=== PATIENT | female | born 1975 | race Caucasian/White ===

== ENCOUNTER 2017-04-04 19:02 | Inpatient (IN) | payer OTHER ==
--- NOTE | 2017-04-04 19:22 | PDOC ---
Rapid Medical Evaluation Time Seen by Provider: 04/04/17 19:17 Medical Evaluation: Allergies Allergy/AdvReac Type Severity Reaction Status Date / Time clarithromycin [From Biaxin] Allergy Verified 05/19/15 16:32 04/04/17 19:20 I have performed a brief in-person evaluation of this patient. The patient presents with a chief complaint of: inability to walk x "weeks". Patient requesting to be seen by specialist for her MS. Complaining of pain in both legs preventing her from walking. Pertinent physical exam findings: NAD, received in wheelchair lungs clear bilaterally heart s1s2 bipedal edema I have ordered the following: labs The patient will proceed to the ED for further evaluation.
[2017-04-04 19:24] VITALS: BMI 26.6
[2017-04-04 20:10] LABS: EOS % 2.3 % (0-4.5); MCH 31.1 pg (25.7-33.7); MCHC 33.4 g/dl (32.0-36.0); MEAN CELL VOLUME 93.1 fl (80-96); MEAN PLT VOLUME 7.5 fl (7.5-11.1); NEUT % 57.7 % (42.8-82.8); PLATELET COUNT 306 K/MM3 (134-434); RDW 13.2 % (11.6-15.6); WHITE BLOOD COUNT 10.9 K/mm3 (4.0-10.0)
[2017-04-04 20:19] LABS: INR 1.06 (0.82-1.09)
[2017-04-04 20:21] LABS: ACTIVATED PTT 36.3 SECONDS (26.9-34.4); ALBUMIN 3.5 g/dl (3.4-5.0); ANION GAP 5 (8-16); BILIRUBIN,TOTAL 0.3 mg/dL (0.2-1.0); CALCIUM 8.5 mg/dL (8.5-10.1); CO2 30 mmol/L (21-32); CREATININE 0.5 mg/dL (0.55-1.02); GLUCOSE,RANDOM 84 mg/dL (74-106); SGPT/ALT 12 U/L (12-78); TOT PROT 6.5 g/dl (6.4-8.2)
[2017-04-04 20:23] LABS: ALK PHOS 54 U/L (45-117)
--- NOTE | 2017-04-04 20:32 | PDOC ---
History of Present Illness - General Chief Complaint: Chronic pain Stated Complaint: EDEMA Time Seen by Provider: 04/04/17 19:17 - History of Present Illness Initial Comments: 04/04/17 20:31 CHIEF COMPLAINT: MS exacerbation HISTORY OF PRESENT ILLNESS: 41 year old female with PMH of MS, chronic back pain , bariatric surgery presents to ED with c/o of exacerbation of MS. Patient reports that her right leg has been increasingly weak for the last month and now "it just gives out" and she cannot walk. She states she has a walker "but it doesn't help if I can't even stand due to the weakness of my right leg." Patient states that she has had similar episodes and "always" requires IV steroids. Patient states she moved to [place] approximately 1-2 years ago and has not been receiving sufficient care at the hospital there; "they won't admit me and give me the steroids." Patient presently denies fever, chills, nausea, vomiting, diarrhea, abdominal pain, shortness of breath, chest pain, back pain, blurred vision, diplopia, dizziness, rash, fever or chills. No recent travel or sick contacts. PAST MEDICAL HISTORY: as per HPI FAMILY HISTORY: Denies SOCIAL HISTORY: Daily smoker. SURGICAL HISTORY: bariatric surgery ALLERGIES: clarithromycin REVIEW OF SYSTEMS General/Constitutional: Denies fever or chills. Denies weakness. HEENT: Denies change in vision. Denies ear pain or discharge. Denies sore throat. Cardiovascular: Denies chest pain or shortness of breath. Respiratory: Denies cough, wheezing, or hemoptysis. Gastrointestinal: Denies nausea, vomiting, diarrhea or constipation. Denies rectal bleeding. Genitourinary: Denies dysuria, frequency, or change in urination. Musculoskeletal: "My legs are always in pain, but my right leg has become really weak and I can't walk on it." Skin and breasts: Denies rash or easy bruising. Neurologic: Denies headache, vertigo, loss of consciousness, or loss of sensation. Psychiatric: Denies depression or anxiety. PHYSICAL EXAM General Appearance: Well-appearing, appropriately dressed. No apparent distress. HEENT: EOMI, PERRLA, normal ENT inspection, normal voice, TMs normal, pharynx normal. No conjunctival pallor. No photophobia, scleral icterus. Respiratory/Chest: Lungs CTAB. Cardiovascular: RRR. S1, S2. Vascular Pulses: Dorsalis-Pedis (R): 2+, Dorsalis-Pedis (L): 2+ Gastrointestinal/Abdominal: Normal bowel sounds. Abdomen soft, non-distended. No tenderness or rebound tenderness. No organomegaly, pulsatile mass, guarding , hernia, hepatomegaly, splenomegaly. Musculoskeletal/Extremities: Normal inspection. FROM of all extremities, normal capillary refill. Pelvis Stable. No CVA tenderness. No tenderness to extremities, pedal edema, swelling, erythema or deformity. Integumentary: Appropriate color, dry, warm. 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 Fully oriented, alert. Appropriate mood/affect. Motor strength 5/5. No appreciable EOM palsy, facial droop or sensory deficit. Past History - Past Medical History Allergies/Adverse Reactions: Allergies Allergy/AdvReac Type Severity Reaction Status Date / Time clarithromycin [From Biaxin] Allergy Verified 04/04/17 19:24 Home Medications: Ambulatory Orders Esomeprazole Mag Trihydrate [Nexium] 40 mg PO DAILY #0 capsule.ec 07/31/13 Levetiracetam [Keppra -] 750 mg PO BID #60 tablet 07/31/13 Oxycodone HCl/Acetaminophen [Percocet 5-325 mg Tablet] 1 - 2 tab PO Q6H PRN #30 tablet 04/15/15 Lorazepam [Ativan] 0.5 mg PO PRN PRN 04/21/15 Oxymorphone HCl [Opana ER] 40 mg PO DAILY 05/19/15 Amox-Tr/K Cl [Augmentin 875-125mg Tablet -] 1 tab PO BID@0800,1730 tablet 05/29 Docusate Sodium [Colace -] 100 mg PO BID PRN #0 capsule 05/29/15 Gabapentin [Neurontin -] 300 mg PO TID capsule 05/29/15 Polyethylene Glycol 3350 [Miralax 119 gm Btl -] 17 gm PO BID bottle 05/29/15 Anemia: No Asthma: No Cancer: No Cardiac Disorders: No CVA: No COPD: No CHF: No Dementia: No Diabetes: No GI Disorders: Yes (reflux) Disorders: Yes (incontinence) HTN: No Hypercholesterolemia: No Liver Disease: No Seizures: Yes (years ago) Thyroid Disease: No - Surgical History Abdominal Surgery: Yes (lap. band placed and removed) Appendectomy: No Cardiac Surgery: No Cholecystectomy: No Lung Surgery: No Neurologic Surgery: No - Immunization History Td Vaccination: Yes Immunization Up to Date: (UNKNOWN) - Suicide/Smoking/Psychosocial Hx Smoking Status: Yes Smoking History: Current every day smoker Have you smoked in the past 12 months: Yes Number of Cigarettes Smoked Daily: 3 Information on smoking cessation initiated: No 'Breaking Loose' booklet given: 05/20/15 Hx Alcohol Use: No Drug/Substance Use Hx: No Substance Use Type: None Hx Substance Use Treatment: No *Physical Exam - Vital Signs Last Vital Signs Temp Pulse Resp BP Pulse Ox 97.7 F 97 H 16 138/86 99 04/04/17 19:15 04/04/17 19:15 04/04/17 19:15 04/04/17 19:15 04/04/17 19:15 ED Treatment Course - LABORATORY CBC & Chemistry Diagram: 04/04/17 19:45 04/04/17 19:45 - ADDITIONAL ORDERS Additional order review: 04/04/17 19:45 RBC 4.05 MCV 93.1 MCHC 33.4 RDW 13.2 MPV 7.5 Neutrophils % 57.7 Lymphocytes % 31.7 Monocytes % 7.3 Eosinophils % 2.3 Basophils % 1.0 Medical Decision Making - Medical Decision Making 04/04/17 20:55 41 year old female with PMH of MS, chronic back pain, bariatric surgery presents to ED with c/o of exacerbation of MS. -labs Called patient's PCP Jose. 04/04/17 21:34 Discussed case with covering MD Fernandez. Will start patient on IV steroids with 125 mg solumedrol. Neuro consult in am. *DC/Admit/Observation/Transfer Diagnosis at time of Disposition: Multiple sclerosis exacerbation, Right leg weakness - Discharge Dispostion Admit: Yes - Referrals Referrals: Arabella Garcia MD [Primary Care Provider] - - Patient Instructions - Post Discharge Activity
[2017-04-04 20:33] LABS: SGOT/AST 4 U/L (15-37)
[2017-04-04] MEDS ORDERED: methylPREDNISolone NA SUCC 125 MG/2 ML VIAL IVPUSH ONE (21:33)
[2017-04-04] MEDS ORDERED: methylPREDNISolone NA SUCC 125 MG/2 ML VIAL ONE (21:43)
[2017-04-04] MEDS: GABAPENTIN 300 MG CAPSULE (FP) PO SCH (23:48)
[2017-04-04] MEDS: levETIRAcetam 500 MG TABLET (FP) PO SCH (23:48)
[2017-04-05] MEDS: methylPREDNISolone NA SUCC 40 MG/1 ML VIAL IVPUSH SCH ×3 (07:23→15:44)
[2017-04-05 09:15] LABS: C-REACTIVE PROTEIN < 0.3 MG/DL (0.00-0.3)
[2017-04-05 09:56] LABS: MCH 30.8 pg (25.7-33.7); MCHC 33.5 g/dl (32.0-36.0); MEAN CELL VOLUME 91.9 fl (80-96); MEAN PLT VOLUME 7.7 fl (7.5-11.1); PLATELET COUNT 281 K/MM3 (134-434); RDW 13.2 % (11.6-15.6); WHITE BLOOD COUNT 12.3 K/mm3 (4.0-10.0)
[2017-04-05] MEDS: levETIRAcetam 500 MG TABLET (FP) PO SCH ×2 (10:01→22:00)
[2017-04-05] MEDS: oxyCODONE HCL 5 MG TABLET PO PRN ×2 (10:02→23:23)
[2017-04-05] MEDS: ACETAMINOPHEN 325 MG TABLET (FP) PO PRN ×2 (10:04→23:25)
[2017-04-05] MEDS: HEPARIN NA (PORCINE) 5,000 UNITS/ML 1ML VIAL SQ SCH ×2 (10:04→21:59)
[2017-04-05] MEDS: GABAPENTIN 300 MG CAPSULE (FP) PO SCH ×2 (10:04→22:00)
[2017-04-05 10:57] LABS: ALK PHOS 51 U/L (45-117); ANION GAP 8 (8-16); BILIRUBIN,TOTAL 0.6 mg/dL (0.2-1.0); CALCIUM 8.6 mg/dL (8.5-10.1); CO2 26 mmol/L (21-32); CREATININE 0.4 mg/dL (0.55-1.02); GLUCOSE,RANDOM 145 mg/dL (74-106); SGOT/AST 8 U/L (15-37); SGPT/ALT 13 U/L (12-78); TOT PROT 5.8 g/dl (6.4-8.2)
--- NOTE | 2017-04-05 13:29 | HP ---
Admitting History and Physical - Primary Care Physician PCP: Arabella Garcia - Admission Chief Complaint: diffculty ambulating History of Present Illness: CHIEF COMPLAINT: MS exacerbation HISTORY OF PRESENT ILLNESS: 41 year old female with PMH of MS, chronic back pain , bariatric surgery presents to ED with c/o of exacerbation of MS. Patient reports that her right leg has been increasingly weak for the last month and now "it just gives out" and she cannot walk. She states she has a walker "but it doesn't help if I can't even stand due to the weakness of my right leg." Patient states that she has had similar episodes and "always" requires IV steroids. Patient states she moved to [place] approximately 1-2 years ago and has not been receiving sufficient care at the hospital there; "they won't admit me and give me the steroids." Patient presently denies fever, chills, nausea, vomiting, diarrhea, abdominal pain, shortness of breath, chest pain, back pain, blurred vision, diplopia, dizziness, rash, fever or chills. No recent travel or sick contacts. PAST MEDICAL HISTORY: as per HPI FAMILY HISTORY: Denies SOCIAL HISTORY: Daily smoker. 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 Cardiovascular: Yes: Hyperlipdemia ...LMP: 07/20/13 Musculoskeletal: Yes: Chronic low back pain - Past Surgical History Past Surgical History: Yes: Bariatric Surgery - Smoking History Smoking history: Current every day smoker Have you smoked in the past 12 months: Yes Aproximately how many cigarettes per day: 3 - Alcohol/Substance Use Hx Alcohol Use: No Home Medications - Allergies Allergies/Adverse Reactions: Allergies Allergy/AdvReac Type Severity Reaction Status Date / Time clarithromycin [From Biaxin] Allergy Verified 04/04/17 19:24 - Home Medications Home Medications: Ambulatory Orders Levetiracetam [Keppra -] 750 mg PO BID #60 tablet 07/31/13 Lorazepam [Ativan] 0.5 mg PO HS PRN 04/21/15 Gabapentin [Neurontin -] 300 mg PO TID capsule 05/29/15 Oxycodone HCl/Acetaminophen [Percocet 5-325 mg Tablet] 1 tab PO Q6H 04/04/17 Review of Systems - Review of Systems Musculoskeletal: reports: Muscle Weakness, Other Physical Examination Vital Signs: Vital Signs Temperature 98.4 F 04/05/17 10:00 Pulse Rate 92 H 04/05/17 10:00 Respiratory Rate 18 04/05/17 10:00 Blood Pressure 106/62 04/05/17 10:00 O2 Sat by Pulse Oximetry (%) 100 04/04/17 23:33 Constitutional: Yes: Calm Cardiovascular: Yes: Regular Rate and Rhythm, S1, S2 Respiratory: Yes: CTA Bilaterally Gastrointestinal: Yes: Normal Bowel Sounds, Soft Musculoskeletal: Yes: Muscle Weakness Edema: No Neurological: Yes: Alert, Oriented Labs: CBC, BMP 04/05/17 09:35 04/05/17 09:35 Problem List - Problems (1) Multiple sclerosis exacerbation Assessment/Plan: neuro eval steroids CT head PT dvt ppx Code(s): G35 - MULTIPLE SCLEROSIS (2) Right leg weakness Assessment/Plan: iv steroids PT neurology Code(s): M62.81 - MUSCLE WEAKNESS (GENERALIZED) (3) Bilateral lower extremity edema Assessment/Plan: doppler to r/o dvt Code(s): R60.0 - LOCALIZED EDEMA
--- NOTE | 2017-04-05 18:13 | CONSULT ---
Consult - text type - Consultation Consultation Note: NEUROLOGY CONSULTATION is greatly appreciated: This 41 yo RH woman lives with her mother. She is well-known to me since presenting with complex partial seizures as a teenager. Currently on Levetiracetam 500mg BID. Work up at that time suggested asymptomatic demyelinating disease (MS). Soon afterwards MS declared itself with trigeminal neuralgia, ataxia and paraparesis requiring high dose IV Medrol in 2001. When last seen by me (08/03/04) she was on established therapy with Avonex ( Interferon alpha) 30 ug IM weekly. In fact she has continued on Avonex under the auspices of Dr. Ballesteros in the [place] until the Pt. stopped the med 8 mos ago on her own. She saw Dr. Ballesteros last month but neglected to tell her she had stopped Avonex. Dr. Ballesteros recommended "switching" to Tysabri and obtained the appropriate blood work (Stratify RICHIE Viral titers) and awaited follow-up. However over the last 3 weeks patient has had progressive R leg weakness and numbness of both legs. Urinary urgency. EMANUEL: Neg Lhermitte's. NEURO: MS/Speech: Normal CN II-XII normal aside from slightly reduced tongue MANUEL's. Gag fine Motor: No drift or tremor. Sl. Reduction in MANUEL's. Mild ankle DF weakness on the Right. Increased tone in legs (R>L). Bilateral Babinski's Coord: Mild B/L FTN Dystaxia Sensory: Decreased vibration to mid-calf. Romberg ++ Gait: Wide-based, right circumduction. IMP: Exacerbation of MS Probably a cervical plaque. Non-compliance with Avonex. Complex partial seizures. SUGGEST: MRI of brain and cervical spine (Both C-/C+). Solumedrol 250 mg IVPB q 6 hrs x 5 days. Check B12, TSH, UA, C&S. Follow glucose: BMP q AM and FS BG q 4PM. Check RICHIE virus titre and f/u Dr. Ballesteros for Natiluzemab (Tysabri) . Thank you very much, Red Abreu MD
[2017-04-05] MEDS: methylPREDNISolone NA SUCC 125 MG/2 ML VIAL IVPB SCH (22:00)
[2017-04-05] MEDS: LORazepam 0.5 MG TABLET PO PRN (23:24)
[2017-04-06 01:55] LABS: URINE APPEARANCE SLCLOUDY; URINE BILIRUBIN NEGATIVE (NEGATIVE); URINE BLOOD NEGATIVE (NEGATIVE); URINE COLOR YELLOW; URINE GLUCOSE (UA) NEGATIVE (NEGATIVE); URINE KETONE NEGATIVE (NEGATIVE); URINE LEUK ESTERASE NEGATIVE (NEGATIVE); URINE NITRITE NEGATIVE (NEGATIVE); URINE PROTEIN NEGATIVE (NEGATIVE); URINE UROBILINOGEN NEGATIVE mg/dL (0.2-1.0)
[2017-04-06] MEDS: HEPARIN NA (PORCINE) 5,000 UNITS/ML 1ML VIAL SQ SCH ×2 (09:20→21:19)
[2017-04-06] MEDS: GABAPENTIN 300 MG CAPSULE (FP) PO SCH ×2 (09:20→21:19)
[2017-04-06] MEDS: levETIRAcetam 500 MG TABLET (FP) PO SCH ×2 (09:20→21:19)
[2017-04-06] MEDS: methylPREDNISolone NA SUCC 125 MG/2 ML VIAL IVPB SCH ×4 (09:21→21:18)
--- NOTE | 2017-04-06 09:26 | PN ---
Progress Note, Physician History of Present Illness: some improvement - Current Medication List Current Medications: Active Medications Acetaminophen (Tylenol -) 650 mg PO Q6H PRN PRN Reason: FEVER OR PAIN Last Admin: 04/05/17 23:25 Dose: 650 mg Gabapentin (Neurontin -) 300 mg PO BID [facility] Last Admin: 04/06/17 09:20 Dose: 300 mg Heparin Sodium (Porcine) (Heparin -) 5,000 unit SQ BID [facility] Last Admin: 04/06/17 09:20 Dose: 5,000 unit Levetiracetam (Keppra -) 500 mg PO BID [facility] Last Admin: 04/06/17 09:20 Dose: 500 mg Lorazepam (Ativan -) 0.5 mg PO BID PRN PRN Reason: ANXIETY Last Admin: 04/05/17 23:24 Dose: 0.5 mg Methylprednisolone Sodium Succinate (Solu-Medrol -) 250 mg IVPB QID [facility] Last Admin: 04/06/17 09:21 Dose: 250 mg Oxycodone HCl (Roxicodone -) 5 mg PO Q6H PRN PRN Reason: PAIN Last Admin: 04/05/17 23:23 Dose: 5 mg - Objective Vital Signs: Vital Signs Temperature 97.7 F 04/06/17 06:28 Pulse Rate 87 04/06/17 06:28 Respiratory Rate 20 04/06/17 06:28 Blood Pressure 90/50 04/06/17 06:28 O2 Sat by Pulse Oximetry (%) 100 04/05/17 21:00 Cardiovascular: Yes: Regular Rate and Rhythm Respiratory: Yes: Regular, CTA Bilaterally Gastrointestinal: Yes: Normal Bowel Sounds, Soft Neurological: Yes: Unsteady Gait, Weakness Labs: CBC, BMP 04/05/17 09:35 04/05/17 09:35 INR, PTT INR 1.06 (0.82-1.09) 04/04/17 19:45 Problem List - Problems (1) Multiple sclerosis exacerbation Assessment/Plan: iv steroids neuro on board pt Code(s): G35 - MULTIPLE SCLEROSIS (2) Bilateral lower extremity edema Assessment/Plan: duplex negative Code(s): R60.0 - LOCALIZED EDEMA (3) Tobacco abuse Assessment/Plan: cessation discussed Code(s): Z72.0 - TOBACCO USE
[2017-04-06 10:50] LABS: URINE LEUK ESTERASE Negative (NEGATIVE)
[2017-04-06] MEDS: oxyCODONE HCL 5 MG TABLET PO PRN ×2 (10:50→21:23)
--- NOTE | 2017-04-06 11:19 | EKG ---
Test Reason : Blood Pressure : / mmHG Vent. Rate : 072 BPM Atrial Rate : 072 BPM P-R Int : 158 ms QRS Dur : 086 ms QT Int : 378 ms P-R-T Axes : 072 062 056 degrees QTc Int : 413 ms SINUS RHYTHM WITH PREMATURE ATRIAL COMPLEXES OTHERWISE NORMAL ECG WHEN COMPARED WITH ECG OF 23-MAY-2015 10:22, PREMATURE ATRIAL COMPLEXES ARE NOW PRESENT Confirmed by MELANIA GILES, ALLAN ([id number]) on 04/06/2017 11:19:37 AM Referred By: Confirmed By:ALLAN VELÁZQUEZ MD
--- NOTE | 2017-04-06 11:41 | EKG ---
Test Reason : Blood Pressure : / mmHG Vent. Rate : 077 BPM Atrial Rate : 077 BPM P-R Int : 144 ms QRS Dur : 088 ms QT Int : 364 ms P-R-T Axes : 069 058 054 degrees QTc Int : 411 ms NORMAL SINUS RHYTHM NORMAL ECG WHEN COMPARED WITH ECG OF 04-APR-2017 22:39, PREMATURE ATRIAL COMPLEXES ARE NO LONGER PRESENT Confirmed by MELANIA GILES, ALLAN ([id number]) on 04/06/2017 11:41:28 AM Referred By: ELISE FRANCES DR Confirmed By:ALLAN VELÁZQUEZ MD
[2017-04-06] MEDS: LORazepam 0.5 MG TABLET PO PRN (21:19)
[2017-04-06] MEDS: NICOTINE 14 MG/24 HOURS TOPICAL PATCH TD SCH (21:28)
[2017-04-07] MEDS: oxyCODONE HCL 5 MG TABLET PO PRN (06:40)
--- NOTE | 2017-04-07 07:27 | PN ---
Progress Note, Physician History of Present Illness: some improvement - Current Medication List Current Medications: Active Medications Acetaminophen (Tylenol -) 650 mg PO Q6H PRN PRN Reason: FEVER OR PAIN Last Admin: 04/05/17 23:25 Dose: 650 mg Gabapentin (Neurontin -) 300 mg PO BID [facility] Last Admin: 04/06/17 21:19 Dose: 300 mg Heparin Sodium (Porcine) (Heparin -) 5,000 unit SQ BID [facility] Last Admin: 04/06/17 21:19 Dose: 5,000 unit Levetiracetam (Keppra -) 500 mg PO BID [facility] Last Admin: 04/06/17 21:19 Dose: 500 mg Lorazepam (Ativan -) 0.5 mg PO BID PRN PRN Reason: ANXIETY Last Admin: 04/06/17 21:19 Dose: 0.5 mg Methylprednisolone Sodium Succinate (Solu-Medrol -) 250 mg IVPB QID [facility] Last Admin: 04/06/17 21:18 Dose: 250 mg Nicotine (Nicoderm Patch -) 14 mg TD DAILY [facility] Last Admin: 04/06/17 21:28 Dose: Not Given Oxycodone HCl (Roxicodone -) 5 mg PO Q6H PRN PRN Reason: PAIN Last Admin: 04/07/17 06:40 Dose: 5 mg - Objective Vital Signs: Vital Signs Temperature 98 F 04/07/17 06:24 Pulse Rate 65 04/07/17 06:24 Respiratory Rate 20 04/07/17 06:24 Blood Pressure 108/59 04/07/17 06:24 O2 Sat by Pulse Oximetry (%) 100 04/06/17 21:00 Cardiovascular: Yes: Regular Rate and Rhythm Respiratory: Yes: Regular, CTA Bilaterally Gastrointestinal: Yes: Normal Bowel Sounds, Soft Edema: No Neurological: Yes: Alert, Unsteady Gait, Weakness Labs: CBC, BMP 04/05/17 09:35 04/05/17 09:35 INR, PTT INR 1.06 (0.82-1.09) 04/04/17 19:45 Problem List - Problems (1) Multiple sclerosis exacerbation Assessment/Plan: iv steroids neuro on board pt Code(s): G35 - MULTIPLE SCLEROSIS (2) Bilateral lower extremity edema Assessment/Plan: duplex negative RESOLVED Code(s): R60.0 - LOCALIZED EDEMA (3) Tobacco abuse Assessment/Plan: cessation discussed Code(s): Z72.0 - TOBACCO USE
[2017-04-07 08:11] LABS: MCH 30.2 pg (25.7-33.7); MCHC 32.7 g/dl (32.0-36.0); MEAN CELL VOLUME 92.4 fl (80-96); MEAN PLT VOLUME 8.4 fl (7.5-11.1); PLATELET COUNT 265 K/MM3 (134-434); RDW 13.4 % (11.6-15.6); WHITE BLOOD COUNT 21.8 K/mm3 (4.0-10.0)
[2017-04-07 08:29] LABS: ANION GAP 9 (8-16); BILIRUBIN,TOTAL 0.3 mg/dL (0.2-1.0); CALCIUM 8.6 mg/dL (8.5-10.1); CO2 26 mmol/L (21-32); CREATININE 0.6 mg/dL (0.55-1.02); GLUCOSE,RANDOM 116 mg/dL (74-106); SGPT/ALT 13 U/L (12-78); TOT PROT 6.1 g/dl (6.4-8.2)
[2017-04-07 08:31] LABS: CHOLESTEROL 150 mg/dL (50-200)
[2017-04-07 08:35] LABS: SGOT/AST 4 U/L (15-37)
[2017-04-07 08:38] LABS: ALK PHOS 49 U/L (45-117); THYROID STIMULATING HORMONE 0.11 uIU/ml (0.358-3.74)
[2017-04-07] MEDS: HEPARIN NA (PORCINE) 5,000 UNITS/ML 1ML VIAL SQ SCH ×2 (09:59→22:16)
[2017-04-07] MEDS: levETIRAcetam 500 MG TABLET (FP) PO SCH ×2 (09:59→22:15)
[2017-04-07] MEDS: methylPREDNISolone NA SUCC 125 MG/2 ML VIAL IVPB SCH ×4 (09:59→22:16)
[2017-04-07] MEDS: GABAPENTIN 300 MG CAPSULE (FP) PO SCH ×2 (09:59→22:15)
[2017-04-07] MEDS: NICOTINE 14 MG/24 HOURS TOPICAL PATCH TD SCH (10:00)
[2017-04-07 11:04] LABS: METAMYELOCYTE 1 % (0-2); TOTAL CELLS COUNTED 100
--- NOTE | 2017-04-07 11:48 | CONS ---
PHYSICAL MEDICINE REHABILITATION CONSULTATION DATE OF CONSULTATION: 04/07/2017 HISTORY OF PRESENT ILLNESS: The patient is a 41-year-old woman with past medical history of multiple sclerosis as well as complex partial seizures, who was admitted with weakness involving her right lower extremity. Patient has a longstanding history of MS with weakness involving the right foot but developed increasing weakness and numbness in both legs, urinary urgency over the last 3 weeks, and patient was admitted on April 04, 2017. On admission, patient's blood work showed slight elevation in WBC, 10.9; hemoglobin 12.6; platelet count 306. Patient's chemistry demonstrated sodium 140, potassium 4.0, BUN 13, creatinine 0.5. Patient was started on IV steroids and has noted improvement. She underwent neurologic evaluation, who also recommended MRI of the brain and cervical spine. Patient was seen by Physical Therapy, able to ambulate 65 feet with a rolling walker at a close contact guard level. Patient states at home she uses a rollator or holds onto objects, but has difficulty clearing the right lower extremity. Most recent blood work was essentially unchanged. Her WBC is slightly elevated at 12.3 on April 05. Today's blood work is pending. Chemistry was also stable on April 05. Her total protein slightly low at 5.8, albumin 3.0. PAST MEDICAL AND SURGICAL HISTORY: As above, history of multiple sclerosis, chronic low back pain, seizure disorder. SOCIAL HISTORY: Lives with her mother in [place] in a private house, a few steps to enter. Premorbidly, again, she had some difficulty with her ambulation and has a rollator. ALLERGY: CLARITHROMYCIN. REVIEW OF SYSTEMS: No headache. No lightheadedness, dizziness. No blurry vision, double vision, or change in vision. No nausea, vomiting, difficulty swallowing, difficulty chewing. No chest pain, shortness of breath, dyspnea on exertion, cough. No bowel/bladder incontinence or retention. No fever or chills. No weight loss, weight gain. Some numbness in the bottoms of both feet as well as weakness of the right lower extremity. No skin rash. PHYSICAL EXAMINATION: General: Patient is a well-developed, well-nourished woman seen both sitting, standing, and ambulating. HEENT: She is normocephalic and atraumatic. Extraocular muscles appear intact. Neck: Supple. Extremities: Without any pitting edema or calf tenderness. Skin: Without any rash or breakdown. Neuromuscular: She is awake, alert, oriented x3. Cranial nerves 2-12 grossly intact. She has good motor power throughout her upper and left lower extremity. She has weakness in the right lower extremity, dorsiflexion only 1-2/5 but antigravity strength otherwise in the right lower extremity at least 4/5. She has normal sensation to pinprick, slight dysmetria [id number] on the right compared to the left side. Bilateral upgoing toes. Gait: Steppage and slightly circumductive on the right, unsteady without device. OVERALL IMPRESSION: 1. Deficits in mobility and activities of daily living. 2. Exacerbation of multiple sclerosis. 3. Right foot drop, partial. 4. History of seizure disorder. 5. Slight leukocytosis. 6. Elevated risk for deep venous thrombosis due to immobility. 7. Mild hypoalbuminemia. PLAN/SUGGESTION: 1. Continue physical therapy including range of motion, stretching of the right lower extremity, balance transfers, gait training, strengthening, reconditioning. 2. Out of bed to chair. 3. Agree with subcutaneous heparin. 4. Patient may benefit from a right ankle/foot arthrosis as an outpatient. 5. Patient would benefit from outpatient physical therapy once stabilized and discharged. 6. Patient provided with card. 7. Neurologic followup as directed. Thank you for this referral. AISHA GEORGES M.D. LAUREN/[id number]
--- NOTE | 2017-04-07 13:23 | PN ---
Progress Note (short form) - Note Progress Note: NEUROLOGY FOLLOW-UP: Day #3 Medrol Rx Events reviewed and discussed with RN. Patient examined. [facility] has twice refused her MRI scans but also notes claustrophobia. Divina feels her balance and right leg strength are improving on therapy. Glu= 119 mg% today EXAM: Neg Lhermitte's. No nystagmus. Romberg/- Still wide-based and waddling but less right circumduction. IMP: MS with exacerbation PLAN: Continue Medrol 250 mg QID x 7 days total then rapid oral taper. 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 Thank you very much, Red Abreu MD
[2017-04-07] MEDS ORDERED: LORazepam 2 MG/ML SDV VIAL IVPUSH ONE (18:00)
[2017-04-07] MEDS: ACETAMINOPHEN 325 MG TABLET (FP) PO PRN (23:32)
--- NOTE | 2017-04-08 03:56 | HOSP ---
Subjective - Review of Symptoms Events since last encounter: nurse called to report pt fell without injury. Subjective: pt reports that she went to the bathroom by herself and her leg became weak and she was unable to maintain a standing position. She slid to the floor and landed on her "butt". She denies hitting her head or any other injury. She denies pain. Physical Examination Vital Signs: Vital Signs Temperature 98.1 F 04/07/17 17:31 Pulse Rate 72 04/07/17 17:31 Respiratory Rate 18 04/07/17 17:31 Blood Pressure 101/58 04/07/17 17:31 O2 Sat by Pulse Oximetry (%) 100 04/07/17 09:00 HENT: Yes: Atraumatic, Normocephalic Musculoskeletal: Yes: Other (all joints with normal ROM. no pain on palpation hips/pelvis/spine.) Labs: CBC, BMP 04/07/17 06:00 04/07/17 06:00 Hospitalist Encounter Assessment: s/p fall - no injury noted at time of fall/exam - nursing to monitor for delayed pain/injury - pt instructed to call for help when going to the [facility].
[2017-04-08] MEDS: GABAPENTIN 300 MG CAPSULE (FP) PO SCH ×2 (09:09→22:38)
[2017-04-08] MEDS: levETIRAcetam 500 MG TABLET (FP) PO SCH ×2 (09:10→22:38)
[2017-04-08] MEDS: HEPARIN NA (PORCINE) 5,000 UNITS/ML 1ML VIAL SQ SCH ×2 (09:10→22:38)
[2017-04-08] MEDS: NICOTINE 14 MG/24 HOURS TOPICAL PATCH TD SCH (09:10)
[2017-04-08] MEDS: methylPREDNISolone NA SUCC 125 MG/2 ML VIAL IVPB SCH ×4 (09:11→22:38)
[2017-04-08 09:34] LABS: ANION GAP 9 (8-16); CALCIUM 8.4 mg/dL (8.5-10.1); CO2 28 mmol/L (21-32); CREATININE 0.6 mg/dL (0.55-1.02); GLUCOSE,RANDOM 116 mg/dL (74-106)
--- NOTE | 2017-04-08 12:24 | PN ---
Progress Note, Physician Chief Complaint: Exacerbation of MS - Current Medication List Current Medications: Active Medications Acetaminophen (Tylenol -) 650 mg PO Q6H PRN PRN Reason: FEVER OR PAIN Last Admin: 04/07/17 23:32 Dose: 650 mg Gabapentin (Neurontin -) 300 mg PO BID [facility] Last Admin: 04/08/17 09:09 Dose: 300 mg Heparin Sodium (Porcine) (Heparin -) 5,000 unit SQ BID [facility] Last Admin: 04/08/17 09:10 Dose: 5,000 unit Levetiracetam (Keppra -) 500 mg PO BID [facility] Last Admin: 04/08/17 09:10 Dose: 500 mg Methylprednisolone Sodium Succinate (Solu-Medrol -) 250 mg IVPB QID [facility] Last Admin: 04/08/17 09:11 Dose: 250 mg Nicotine (Nicoderm Patch -) 14 mg TD DAILY [facility] Last Admin: 04/08/17 09:10 Dose: Not Given - Objective Vital Signs: Vital Signs Temperature 97.5 F L 04/08/17 07:22 Pulse Rate 56 L 04/08/17 07:22 Respiratory Rate 18 04/08/17 07:22 Blood Pressure 108/54 04/08/17 07:22 O2 Sat by Pulse Oximetry (%) 100 04/07/17 09:00 Constitutional: Yes: Well Nourished, No Distress, Calm Cardiovascular: Yes: Regular Rate and Rhythm Respiratory: Yes: Regular Musculoskeletal: Yes: Muscle Weakness Edema: No Peripheral Pulses WNL: Yes Neurological: Yes: Alert, Oriented Psychiatric: Yes: Alert, Oriented Labs: CBC, BMP 04/07/17 06:00 04/08/17 08:00 INR, PTT INR 1.06 (0.82-1.09) 04/04/17 19:45 Problem List - Problems (1) Fall Assessment/Plan: -fall overnight in the bathroom -evaluated by Hospitalist, -patient did not hit her head, she brought herself down on her buttocks Code(s): W19.XXXA - UNSPECIFIED FALL, INITIAL ENCOUNTER (2) Multiple sclerosis exacerbation Assessment/Plan: -seen by Neurology -OFELIA corrales -Erin-Spine MRI negative -Brain MRI shows: Extensive supratentorial white matter demyelinating demyelinating process (MS). Atrophy of the corpus callosum with increased signal intensity. Loss of volume of the brain parenchyma (cerebral atrophy). The CSF spaces unchanged from prior study, no evidence of hydrocephalus Several hyperintense foci are noted in the brainstem cerebellum, bilateral middle cerebellar peduncles (left greater than the right). Following intravenous infusion with gadolinium, no blood brain barrier defect, or abnormal focus of enhancement is seen. No acute stroke is seen on the diffusion-weighted images. Code(s): G35 - MULTIPLE SCLEROSIS (3) Right leg weakness Assessment/Plan: -Improving -Physical therapy Code(s): M62.81 - MUSCLE WEAKNESS (GENERALIZED) Assessment/Plan see problem list
[2017-04-08] MEDS: ACETAMINOPHEN 325 MG TABLET (FP) PO PRN ×2 (14:36→23:03)
[2017-04-08] MEDS: oxyCODONE HCL 5 MG TABLET PO PRN ×2 (14:36→23:03)
[2017-04-08] MEDS ORDERED: ACETAMINOPHEN 325 MG TABLET (FP) PO PRN (14:38)
[2017-04-09 08:00] LABS: ANION GAP 9 (8-16); CALCIUM 8.6 mg/dL (8.5-10.1); CO2 29 mmol/L (21-32); CREATININE 0.6 mg/dL (0.55-1.02); GLUCOSE,RANDOM 120 mg/dL (74-106)
[2017-04-09] MEDS: oxyCODONE HCL 5 MG TABLET PO PRN ×2 (08:57→17:46)
[2017-04-09] MEDS: ACETAMINOPHEN 325 MG TABLET (FP) PO PRN ×2 (08:58→17:47)
[2017-04-09] MEDS ORDERED: PT OWN MED DRAWER 7, Y5N ONE (09:44)
[2017-04-09] MEDS: levETIRAcetam 500 MG TABLET (FP) PO SCH ×2 (09:50→21:37)
[2017-04-09] MEDS: GABAPENTIN 300 MG CAPSULE (FP) PO SCH ×2 (09:50→21:39)
[2017-04-09] MEDS: HEPARIN NA (PORCINE) 5,000 UNITS/ML 1ML VIAL SQ SCH ×2 (09:50→21:39)
[2017-04-09] MEDS: NICOTINE 14 MG/24 HOURS TOPICAL PATCH TD SCH (09:55)
[2017-04-09] MEDS: methylPREDNISolone NA SUCC 125 MG/2 ML VIAL IVPB SCH ×4 (11:17→21:39)
--- NOTE | 2017-04-09 15:36 | PN ---
Progress Note, Physician - Current Medication List Current Medications: Active Medications Acetaminophen (Tylenol -) 325 mg PO Q6H PRN PRN Reason: PAIN Last Admin: 04/09/17 08:58 Dose: 325 mg Acetaminophen (Tylenol -) 650 mg PO Q6H PRN PRN Reason: FEVER OR PAIN Gabapentin (Neurontin -) 300 mg PO BID [facility] Last Admin: 04/09/17 09:50 Dose: 300 mg Heparin Sodium (Porcine) (Heparin -) 5,000 unit SQ BID [facility] Last Admin: 04/09/17 09:50 Dose: 5,000 unit Levetiracetam (Keppra -) 500 mg PO BID [facility] Last Admin: 04/09/17 09:50 Dose: 500 mg Methylprednisolone Sodium Succinate (Solu-Medrol -) 250 mg IVPB QID [facility] Last Admin: 04/09/17 14:14 Dose: 250 mg Nicotine (Nicoderm Patch -) 14 mg TD DAILY [facility] Last Admin: 04/09/17 09:55 Dose: Not Given Oxycodone HCl (Roxicodone -) 5 mg PO Q6H PRN PRN Reason: PAIN Last Admin: 04/09/17 08:57 Dose: 5 mg - Objective Vital Signs: Vital Signs Temperature 98.8 F 04/09/17 14:54 Pulse Rate 110 H 04/09/17 14:54 Respiratory Rate 18 04/09/17 14:54 Blood Pressure 109/59 04/09/17 14:54 O2 Sat by Pulse Oximetry (%) 95 04/08/17 21:00 Labs: CBC, BMP 04/07/17 06:00 04/09/17 07:00 INR, PTT INR 1.06 (0.82-1.09) 04/04/17 19:45
[2017-04-09] MEDS ORDERED: POTASSIUM CHLORIDE TABS 20 MEQ TABLET.ER (FP) PO ONE (16:15)
--- NOTE | 2017-04-09 17:43 | PN ---
Progress Note, Physician Chief Complaint: AWAKE ALERT FEELING BETTER THIS IS MY FIRST ENCOUNTER WITH THIS PATIENT NOTES AND RECORDS REVIEWED - Current Medication List Current Medications: Active Medications Acetaminophen (Tylenol -) 325 mg PO Q6H PRN PRN Reason: PAIN Last Admin: 04/09/17 08:58 Dose: 325 mg Acetaminophen (Tylenol -) 650 mg PO Q6H PRN PRN Reason: FEVER OR PAIN Gabapentin (Neurontin -) 300 mg PO BID [facility] Last Admin: 04/09/17 09:50 Dose: 300 mg Heparin Sodium (Porcine) (Heparin -) 5,000 unit SQ BID [facility] Last Admin: 04/09/17 09:50 Dose: 5,000 unit Levetiracetam (Keppra -) 500 mg PO BID [facility] Last Admin: 04/09/17 09:50 Dose: 500 mg Methylprednisolone Sodium Succinate (Solu-Medrol -) 250 mg IVPB QID [facility] Last Admin: 04/09/17 14:14 Dose: 250 mg Nicotine (Nicoderm Patch -) 14 mg TD DAILY [facility] Last Admin: 04/09/17 09:55 Dose: Not Given Oxycodone HCl (Roxicodone -) 5 mg PO Q6H PRN PRN Reason: PAIN Last Admin: 04/09/17 08:57 Dose: 5 mg - Objective Vital Signs: Vital Signs Temperature 98.3 F 04/09/17 17:14 Pulse Rate 80 04/09/17 17:14 Respiratory Rate 18 04/09/17 17:14 Blood Pressure 117/55 04/09/17 17:14 O2 Sat by Pulse Oximetry (%) 95 04/08/17 21:00 Constitutional: Yes: Mild Distress Eyes: Yes: WNL HENT: Yes: WNL Neck: Yes: WNL Cardiovascular: Yes: WNL Respiratory: Yes: WNL Gastrointestinal: Yes: WNL Genitourinary: Yes: WNL Musculoskeletal: Yes: Muscle Weakness Extremities: Yes: WNL Edema: No Peripheral Pulses WNL: Yes Integumentary: Yes: WNL Wound/Incision: Yes: Clean/Dry Neurological: Yes: Pre-Existing Deficit, Weakness ...Motor Strength: LLE, RLE Psychiatric: Yes: WNL Labs: CBC, BMP 04/07/17 06:00 04/09/17 07:00 INR, PTT INR 1.06 (0.82-1.09) 04/04/17 19:45 Problem List - Problems (1) Multiple sclerosis exacerbation Code(s): G35 - MULTIPLE SCLEROSIS (2) Right leg weakness Code(s): M62.81 - MUSCLE WEAKNESS (GENERALIZED) (3) Leg pain, bilateral Code(s): M79.604 - PAIN IN RIGHT LEG; M79.605 - PAIN IN LEFT LEG (4) Multiple sclerosis Code(s): G35 - MULTIPLE SCLEROSIS Assessment/Plan KCL 40MEQ X 1 STEROIDS IV QID NEURO F/U PT EVAL OOB TO CHAIR DVT PROPHYLAXIS
[2017-04-10] MEDS: oxyCODONE HCL 5 MG TABLET PO PRN ×2 (02:14→10:35)
[2017-04-10] MEDS: ACETAMINOPHEN 325 MG TABLET (FP) PO PRN ×2 (02:15→10:34)
[2017-04-10 08:47] LABS: ANION GAP 10 (8-16); CALCIUM 8.2 mg/dL (8.5-10.1); CO2 27 mmol/L (21-32); CREATININE 0.6 mg/dL (0.55-1.02); GLUCOSE,RANDOM 114 mg/dL (74-106); MAGNESIUM 2.4 mg/dL (1.8-2.4)
[2017-04-10] MEDS ORDERED: PT OWN MED DRAWER 7, Y5N ONE (10:11)
[2017-04-10] MEDS ORDERED: levETIRAcetam 250 MG TABLET (FP) PO ONE (10:11)
[2017-04-10] MEDS: levETIRAcetam 500 MG TABLET (FP) PO SCH (10:20)
[2017-04-10] MEDS: methylPREDNISolone NA SUCC 125 MG/2 ML VIAL IVPB SCH ×3 (10:21→14:38)
[2017-04-10] MEDS: HEPARIN NA (PORCINE) 5,000 UNITS/ML 1ML VIAL SQ SCH (10:21)
[2017-04-10] MEDS: GABAPENTIN 300 MG CAPSULE (FP) PO SCH (10:21)
[2017-04-10] MEDS: NICOTINE 14 MG/24 HOURS TOPICAL PATCH TD SCH (10:22)
--- NOTE | 2017-04-10 14:01 | DS ---
Physical Examination Vital Signs: Vital Signs Temperature 98.2 F 04/10/17 08:20 Pulse Rate 51 L 04/10/17 08:20 Respiratory Rate 18 04/10/17 08:20 Blood Pressure 109/62 04/10/17 08:20 O2 Sat by Pulse Oximetry (%) 95 04/09/17 21:00 Findings/Remarks: awake alert feeling better Constitutional: Yes: No Distress Eyes: Yes: WNL HENT: Yes: WNL Neck: Yes: WNL Cardiovascular: Yes: WNL Respiratory: Yes: WNL Gastrointestinal: Yes: WNL Musculoskeletal: Yes: Muscle Weakness Extremities: Yes: WNL Edema: No Peripheral Pulses WNL: Yes Integumentary: Yes: WNL Wound/Incision: Yes: Clean/Dry Neurological: Yes: Pre-Existing Deficit, Unsteady Gait, Weakness ...Motor Strength: LLE, RLE Psychiatric: Yes: WNL Labs: CBC, BMP 04/07/17 06:00 04/10/17 06:50 Discharge Summary Reason For Visit: WEAKNESS OF RIGHT LOWER EXTREMITY,PAIN IN BOTH Current Active Problems Fall (Acute) Multiple sclerosis exacerbation (Acute) Right leg weakness (Acute) Tobacco abuse (Acute) Procedures: Principal: MRI BRAIN AND C-SPINE Hospital Course: IV STEROIDS WITH PT, IMPROVED MUSCLE WEAKNESS, OUT PATIENT F/U Condition: Improved - Instructions Diet, Activity, Other Instructions: PREDNISONE TAPER DIRECTED SEE NEUROLOGY 1-[address] OLIVARES IN 1 WEEK Referrals: Arabella Olivares MD [Primary Care Provider] - Disposition: HOME - Home Medications Comprehensive Discharge Medication List: Ambulatory Orders Levetiracetam [Keppra -] 750 mg PO BID #60 tablet 07/31/13 Lorazepam [Ativan] 0.5 mg PO HS PRN 04/21/15 Gabapentin [Neurontin -] 300 mg PO TID capsule 05/29/15 Oxycodone HCl/Acetaminophen [Percocet 5-325 mg Tablet] 1 tab PO Q6H 04/04/17 Acetaminophen [Tylenol .Regular Strength -] 325 mg PO Q6H PRN tablet 04/10/17 Acetaminophen [Tylenol .Regular Strength -] 650 mg PO Q6H PRN tablet 04/10/17 Gabapentin [Neurontin -] 300 mg PO BID capsule 04/10/17 Nicotine Patch [Nicoderm Patch -] 14 mg TD DAILY patch 04/10/17 Prednisone [Deltasone -] 20 mg PO DAILY #60 tablet 04/10/17 Prednisone [Deltasone] 20 mg PO DAILY #60 tablet 04/10/17
[2017-04-10 15:00] VITALS: BP 116/70; PULSE 84; TEMP 98
== END 2017-04-10 16:12 | disposition home or self-care (01) | DRG 60 ==
LOC: JER 19:02 → JERBED 21:35 → J8W 23:09
PROVIDERS: ADMIT Family Medicine; ATTEND Family Medicine
DX: G35 Multiple sclerosis (principal); M62.81 Muscle weakness (generalized); R60.0 Localized edema; M79.604 Pain in right leg; M79.605 Pain in left leg; F17.210 Nicotine dependence, cigarettes, uncomplicated
CPT/HCPCS: 36415; 70553-TC; 72156-TC; 80048; 80053; 80061; 81003; 83036; 83721; 83735; 83880; 84443; 85025; 85027; 85610; 85651; 85730; 86140; 87086; 93005; 93010; 93970-TC; 97116-GP; 97161-GP; 99282-25; A9576; J1644

== ENCOUNTER 2018-05-25 20:53 | Inpatient (IN) | payer OTHER ==
[2018-05-25 21:23] VITALS: BMI 27.5
--- NOTE | 2018-05-25 21:23 | PDOC ---
Rapid Medical Evaluation Chief Complaint: Chronic pain Medical Evaluation: Allergies Allergy/AdvReac Type Severity Reaction Status Date / Time clarithromycin [From Biaxin] Allergy Verified 01/17/18 23:41 05/25/18 21:18 I have performed a brief in-person evaluation of this patient. The patient presents with a chief complaint of:progressive weakness and falls. + Hx of MS and not taking medications. No recent fevers/ illness/ Pertinent physical exam findings: pale, unable to stand I have ordered the following: CBC, CMP, UA The patient will proceed to the ED for further evaluation. Discharge Disposition - Diagnosis Weakness - Referrals - Patient Instructions - Post Discharge Activity
[2018-05-25 21:54] LABS: URINE APPEARANCE CLEAR; URINE BILIRUBIN NEGATIVE (<2.0 mg/dL); URINE COLOR YELLOW; URINE GLUCOSE (UA) NEGATIVE (NEGATIVE); URINE KETONE TRACE (NEGATIVE); URINE LEUK ESTERASE NEGATIVE (NEGATIVE); URINE NITRITE NEGATIVE (NEGATIVE); URINE PROTEIN NEGATIVE (NEGATIVE); URINE UROBILINOGEN NEGATIVE mg/dL (0.2-1.0)
--- NOTE | 2018-05-25 22:23 | PDOC ---
Attending Attestation - HPI HPI: 05/25/18 22:55 The patient is a 43 year old female with a PMH of MS who presents to the ER with increasing weakness and falls. Patient has not been taking her MS medications. Patient denies any fever, chills, sob, cp, recent illnesses, urinary symptoms, diarrhea, constipation. - Physicial Exam PE: 05/25/18 23:24 ADULT PHYSICAL EXAM Constitutional: Awake, alert, oriented. No acute distress. Cardiovascular: Regular rate. Regular rhythm. S1, S2 regular. Distal pulses are 2+ and symmetric. Pulmonary/Chest: No evidence of respiratory distress. Clear to auscultation bilaterally No wheezing, rales or rhonchi. Abdominal: Soft and non-distended. There is no tenderness. No rebound, guarding or rigidity. No organomegaly. No palpable masses. Good bowel sounds. Back: No CVA tenderness. Musculoskeletal: No edema. No cyanosis. No clubbing. No calf tenderness. Radial/pedal pulses are intact and 2+ bilaterally (+) Right leg is weak to gravity. Left leg has 4/5 strength (+) sensory changes to the left lateral and right medial lower legs. (+) Weakness to the hip flexor on the right, chronically. Skin: Skin is warm and dry. No petechiae. No purpura. Neurological: Alert and oriented to person, place, and time. Cranial nerves II -XII are grossly intact. Normal speech. Strength is grossly symmetric. No sensory deficits. Psychiatric: Good eye contact. Normal interaction, affect and behavior. <Diann Cervantes - Last Filed: 05/25/18 23:28> - Resident Resident Name: Krishna Pond - ED Attending Attestation I have performed the following: I have examined & evaluated the patient, The case was reviewed & discussed with the resident, I agree w/resident's findings & plan, Exceptions are as noted - Medical Decision Making 05/25/18 22:23 I, Dr. Ade Cortez, DO, attest that this document has been prepared under my direction and personally reviewed by me in its entirety. I further attest, that it accurately reflects all work, treatment, procedures and medical decision -making performed by me. 05/26/18 00:08 a/p: 43yo female with hx of MS whos brother brought her to the hospital for fall eval -pt states she falls daily -denies new neuro symptoms from her MS -denies head injury or loc -states her legs are weak and that is chronic -states sensory changes to L lower leg and R lower leg are chronic -states she had an MRI as outpt today -denies dysuria, denies lightheaded or cp, denies cp -pt states she is unsure why she is in the ER 05/26/18 00:10 resident discussed the case with the patients brother who states he was having difficulty caring for her at home and wanted her placed in a [facility]. She has been treated in the past for her MS by Dr. Abreu, but currently being followed by a Dr. Wiggins in [place]. Had the MRI today order by Dr. Wiggins. States she sometimes lives in [place] with her mother and sometimes in [place] with the brother. Noone is actively managing her MS - currently not on medication. Had infusions with Dr. Abreu in the past, but no infusions in months per the brother and the patient. 05/26/18 01:41 labs reviewed microblog sent to [facility] [employer] covering for juwan for obs 05/26/18 02:03 case discussed with Charo Lama APN from [facility] covering for dr. echeverria who accepts pt to service <Ade Cortez - Last Filed: 05/26/18 02:04> *DC/Admit/Observation/Transfer - Discharge Dispostion Decision to Admit order: Yes <Ade Cortez - Last Filed: 05/26/18 02:04> Diagnosis at time of Disposition: Weakness, Falls frequently - Discharge Dispostion Condition at time of disposition: Fair - Referrals Referrals: Arabella Echeverria MD [Primary Care Provider] - - Patient Instructions - Post Discharge Activity
--- NOTE | 2018-05-25 22:46 | PDOC ---
History of Present Illness <Diann Cervantes - Last Filed: 05/25/18 23:27> - History of Present Illness Initial Comments: The patient is a 43F w/ a history of MS and seizure d/o (last 1y ago) who presents by her brother for evaluation of multiple falls 2/2 to her MS. She denies fall today, hitting her head, or LOC. Spoke w/ patient's brother who stated that he picked her up from their mother's place today in [place]. The patient will be w/ her brother for the next few days and then go back to her mother. He has a MRI disc that was done today and all of her medications but did not leave them. He will be able to bring them tomorrow. The patient reports that she has established care w/ Dr. Abraham Wiggins in [place] but has not started MS treatment there yet. She denies any changes in her symptoms recently. Denies fevers/chills, TOMPKINS, vision changes, chest pain, trouble breathing, abdominal pain, N/V/C/D, or acute changes in sensation or strength 05/25/18 23:35 Meds: Lorazepam, Donepezil Meds written by Dr. Abraham Wiggins and Dr. Lico Cordova, both neurologists in [place] Reports being seen by Dr. Abreu here in the past 05/26/18 00:27 <Krishna Pond - Last Filed: 05/27/18 19:18> - General Chief Complaint: Chronic pain Stated Complaint: MS BOTH LEGS IN PAIN Time Seen by Provider: 05/25/18 22:18 Past History <Diann Cervantes - Last Filed: 05/25/18 23:27> - Past Medical History Anemia: No Asthma: No Cancer: No Cardiac Disorders: No CVA: No COPD: No CHF: No Dementia: No Diabetes: No GI Disorders: Yes (reflux) Disorders: No HTN: No Hypercholesterolemia: No Liver Disease: No Seizures: Yes (years ago) Thyroid Disease: No Other medical history: MS dx 22 years ago - Surgical History Abdominal Surgery: Yes (lap. band placed and removed) Appendectomy: No Cardiac Surgery: No Cholecystectomy: No Lung Surgery: No Neurologic Surgery: No - Immunization History Td Vaccination: Yes Immunization Up to Date: (UNKNOWN) - Suicide/Smoking/Psychosocial Hx Smoking Status: Yes Smoking History: Current every day smoker Have you smoked in the past 12 months: Yes Number of Cigarettes Smoked Daily: 20 Information on smoking cessation initiated: Yes 'Breaking Loose' booklet given: 05/20/15 Hx Alcohol Use: No Drug/Substance Use Hx: No Substance Use Type: None Hx Substance Use Treatment: No <Krishna Pond - Last Filed: 05/27/18 19:18> - Past Medical History Allergies/Adverse Reactions: Allergies Allergy/AdvReac Type Severity Reaction Status Date / Time clarithromycin [From Biaxin] Allergy Verified 01/17/18 23:41 Home Medications: Ambulatory Orders levETIRAcetam [Keppra -] 750 mg PO BID #60 tablet 07/31/13 Acetaminophen [Tylenol .Regular Strength -] 650 mg PO Q6H PRN tablet 04/10/17 Nicotine Patch [Nicoderm Patch -] 14 mg TD DAILY patch 04/10/17 Vitamin D - 50,000 units PO WEEKLY 01/18/18 Lorazepam [Ativan] 0.5 mg PO HS PRN #7 tab 01/24/18 Pantoprazole Sodium [Protonix -] 40 mg PO DAILY tablet.ec 01/24/18 Polyethylene Glycol 3350 [Miralax 119 gm Btl -] 17 gm PO DAILY bottle 01/24/18 Sennosides [Senna -] 1 tab PO HS tablet 01/24/18 predniSONE [Deltasone -] 80 mg PO DAILY #14 tablet MDD 1 01/24/18 Review of Systems - Review of Systems Able to Perform ROS?: Yes Comments:: GENERAL/CONSTITUTIONAL: No fever or chills HEAD, EYES, EARS, NOSE AND THROAT: No change in vision. No ear pain or discharge. No sore throat CARDIOVASCULAR: No chest pain or shortness of breath RESPIRATORY: Denies cough, hemoptysis GASTROINTESTINAL: No nausea, vomiting, diarrhea or constipation GENITOURINARY: No dysuria, frequency, or change in urination MUSCULOSKELETAL: No joint or muscle swelling or pain. No neck or back pain SKIN: No rash NEUROLOGIC: per HPI ENDOCRINE: No increased thirst. No abnormal weight change HEMATOLOGIC/LYMPHATIC: No anemia, easy bleeding, or history of blood clots ALLERGIC/IMMUNOLOGIC: No hives or skin allergy 05/25/18 23:48 Is the patient limited German proficient: No <Krishna Pond - Last Filed: 05/27/18 19:18> *Physical Exam - Vital Signs Last Vital Signs Temp Pulse Resp BP Pulse Ox 97.5 F L 95 H 20 102/60 100 05/25/18 21:15 05/25/18 21:15 05/25/18 21:15 05/25/18 21:15 05/25/18 21:15 <Diann Cervantes - Last Filed: 05/25/18 23:27> - Vital Signs Last Vital Signs Temp Pulse Resp BP Pulse Ox 97.5 F L 95 H 20 102/60 100 05/25/18 21:15 05/25/18 21:15 05/25/18 21:15 05/25/18 21:15 05/25/18 21:15 - Physical Exam Comments: GENERAL: Awake, alert, and fully oriented, in no acute distress HEAD: No signs of trauma, normocephalic, atraumatic EYES: PERRLA, EOMI, sclera anicteric, conjunctiva clear ENT: Hearing grossly normal, nares patent, oropharynx clear without exudates. No uvular deviation. Moist mucosa LUNGS: No distress, speaks full sentences, clear to auscultation bilaterally HEART: Regular rate and rhythm, normal S1 and S2, no murmurs appreciated, peripheral pulses normal and equal bilaterally ABDOMEN: Soft, nontender, normoactive bowel sounds. No guarding, no rebound EXTREMITIES : Normal inspection, Normal range of motion, no edema. No clubbing or cyanosis NEUROLOGICAL: Cranial nerves II through XII grossly intact. Left lateral and R medial calf decreased sensation to light touch. +Romberg (pt falls to R/forward) . SKIN: Warm, Dry 05/25/18 23:49 <Krishna Pond - Last Filed: 05/27/18 19:18> Moderate Sedation - Procedure Monitoring Vital Signs: Procedure Monitoring Vital Signs Temperature 97.5 F L 05/25/18 21:15 Pulse Rate 95 H 05/25/18 21:15 Respiratory Rate 20 05/25/18 21:15 Blood Pressure 102/60 05/25/18 21:15 O2 Sat by Pulse Oximetry (%) 100 05/25/18 21:15 <Diann Cervantes - Last Filed: 05/25/18 23:27> - Procedure Monitoring Vital Signs: Procedure Monitoring Vital Signs Temperature 97.5 F L 05/25/18 21:15 Pulse Rate 95 H 05/25/18 21:15 Respiratory Rate 20 05/25/18 21:15 Blood Pressure 102/60 05/25/18 21:15 O2 Sat by Pulse Oximetry (%) 100 05/25/18 21:15 <Krishna Pond - Last Filed: 05/27/18 19:18> ED Treatment Course - ADDITIONAL ORDERS Additional order review: Laboratory Results 05/25/18 21:38 Urine Color Yellow Urine Appearance Clear Urine pH 6.0 Ur Specific [place] 1.020 Urine Protein Negative Urine Glucose (UA) Negative Urine Ketones Trace H Urine Blood Negative Urine Nitrite Negative Urine Bilirubin Negative Urine Urobilinogen Negative Ur Leukocyte Esterase Negative <Diann Cervantes - Last Filed: 05/25/18 23:27> - LABORATORY CBC & Chemistry Diagram: 05/27/18 08:00 05/27/18 08:00 - ADDITIONAL ORDERS Additional order review: Laboratory Results 05/25/18 21:38 Urine Color Yellow Urine Appearance Clear Urine pH 6.0 Ur Specific [place] 1.020 Urine Protein Negative Urine Glucose (UA) Negative Urine Ketones Trace H Urine Blood Negative Urine Nitrite Negative Urine Bilirubin Negative Urine Urobilinogen Negative Ur Leukocyte Esterase Negative <Krishna Pond - Last Filed: 05/27/18 19:18> Medical Decision Making - Medical Decision Making The pt is a 43F w/ a history of MS, seizure d/o, panic d/o who presents for evaluation by her brother for persistent falls ED Course CMP, CBC US IV placed by myself -labs drawn and sent Lytes wnl No INA LFTs wnl UA w/o evidence UTI Mild leukocytosis to 13 No anemia Plan for admission for evaluation of falls and rehab Dispo: admit <Krishna Pond - Last Filed: 05/27/18 19:18> *DC/Admit/Observation/Transfer <Diann Cervantes - Last Filed: 05/25/18 23:27> - Discharge Dispostion Decision to Admit order: Yes <Krishna Pond - Last Filed: 05/27/18 19:18> Diagnosis at time of Disposition: Weakness, Falls frequently - Discharge Dispostion Condition at time of disposition: Fair
[2018-05-26 00:51] LABS: BASO % 0.7 % (0-2.0); EOS % 2.7 % (0-4.5); HEMATOCRIT 39.3 % (32.4-45.2); HEMOGLOBIN 13.9 GM/dL (10.7-15.3); LYMPH % 26.4 % (8-40); MCH 33.5 pg (25.7-33.7); MCHC 35.3 g/dl (32.0-36.0); MEAN CELL VOLUME 94.9 fl (80-96); MEAN PLT VOLUME 8.3 fl (7.5-11.1); NEUT % 62.2 % (42.8-82.8); PLATELET COUNT 276 K/MM3 (134-434); RBC 4.14 M/mm3 (3.60-5.2); RDW 12.7 % (11.6-15.6); WHITE BLOOD COUNT 13.5 K/mm3 (4.0-10.0)
[2018-05-26 01:18] LABS: ALBUMIN 3.8 g/dl (3.4-5.0); ALK PHOS 62 U/L (45-117); ANION GAP 7 MMOL/L (8-16); BILIRUBIN,TOTAL 0.3 mg/dL (0.2-1); BLOOD UREA NITROGEN 23 mg/dL (7-18); CALCIUM 8.9 mg/dL (8.5-10.1); CHLORIDE 106 mmol/L (98-107); CO2 28 mmol/L (21-32); CREATININE 0.7 mg/dL (0.55-1.3); GLUCOSE,RANDOM 83 mg/dL (74-106); POTASSIUM 3.8 mmol/L (3.5-5.1); SGOT/AST 9 U/L (15-37); SGPT/ALT 17 U/L (13-61); SODIUM 140 mmol/L (136-145)
--- NOTE | 2018-05-26 03:24 | HP ---
CHIEF COMPLAINT: Frequent Falls, RLE Weakness PCP: Dr. Garcia HISTORY OF PRESENT ILLNESS: This is a 43v y/o man with PMHx of: MS, Anxiety. Who presents to the ED with frequent falls, RLE weakness. Patient reports living with her mother in [place], was recently living in [place] with her sister and was being treated in the past with infusion treatments for her MS. She reports not having therapy in months and is not on current medications for her MS. She currently is not seeing a neurologist as well. Patient reports having frequent falls while using her walker due to her leg weakness. Patient reports falling last night but denies head injury and LOC. Patient denies fever, chills, cough, SOB, CP, palpitations , AP, N/V/D, dysuria ER course was notable for: (1) Head CT- no ICH (2) WBC 13.5 (3) Recent Travel: none PAST MEDICAL HISTORY: See HPI PAST SURGICAL HISTORY: Social History: Smoking: Current daily Alcohol: None Drugs: None Lives with family, ambulates with walker Family History: Allergies clarithromycin [From Biaxin] Allergy (Verified 01/17/18 23:41) HOME MEDICATIONS: Home Medications Medication Instructions Recorded levETIRAcetam [Keppra -] 750 mg PO BID #60 tablet 07/31/13 Acetaminophen [Tylenol .Regular 650 mg PO Q6H PRN tablet 04/10/17 Strength -] Nicotine Patch [Nicoderm Patch -] 14 mg TD DAILY patch 04/10/17 Vitamin D - 50,000 units PO WEEKLY 01/18/18 Lorazepam [Ativan] 0.5 mg PO HS PRN #7 tab 01/24/18 Pantoprazole Sodium [Protonix -] 40 mg PO DAILY tablet.ec 01/24/18 Polyethylene Glycol 3350 [Miralax 17 gm PO DAILY bottle 01/24/18 119 gm Btl -] Sennosides [Senna -] 1 tab PO HS tablet 01/24/18 predniSONE [Deltasone -] 80 mg PO DAILY #14 tablet MDD 1 01/24/18 REVIEW OF SYSTEMS CONSTITUTIONAL: generalized weakness Absent: fever, chills, diaphoresis, malaise, loss of appetite, weight change HEENT: Absent: rhinorrhea, nasal congestion, throat pain, throat swelling, difficulty swallowing, mouth swelling, ear pain, eye pain, visual changes CARDIOVASCULAR: Absent: chest pain, syncope, palpitations, irregular heart rate, lightheadedness , peripheral edema RESPIRATORY: Absent: cough, shortness of breath, dyspnea with exertion, orthopnea, wheezing, stridor, hemoptysis GASTROINTESTINAL: Absent: abdominal pain, abdominal distension, nausea, vomiting, diarrhea, constipation, melena, hematochezia GENITOURINARY: Absent: dysuria, frequency, urgency, hesitancy, hematuria, flank pain, genital pain MUSCULOSKELETAL: Absent: myalgia, arthralgia, joint swelling, back pain, neck pain SKIN: Absent: rash, itching, pallor HEMATOLOGIC/IMMUNOLOGIC: Absent: easy bleeding, easy bruising, lymphadenopathy, frequent infections ENDOCRINE: Absent: unexplained weight gain, unexplained weight loss, heat intolerance, cold intolerance NEUROLOGIC: focal weakness, unsteady gait Absent: headache, focal weakness or paresthesias, dizziness, seizure, mental status changes, bladder or bowel incontinence PSYCHIATRIC: Absent: anxiety, depression, suicidal or homicidal ideation, hallucinations. PHYSICAL EXAMINATION Vital Signs - 24 hr 05/25/18 21:15 Temperature 97.5 F L Pulse Rate 95 H Respiratory 20 Rate Blood Pressure 102/60 O2 Sat by Pulse 100 Oximetry (%) GENERAL: Awake, alert, and fully oriented, in no acute distress. HEAD: Normal with no signs of trauma. EYES: Pupils equal, round and reactive to light, extraocular movements intact, sclera anicteric, conjunctiva clear. No lid lag. EARS, NOSE, THROAT: Ears normal, nares patent, oropharynx clear without exudates. Dry mucous membranes. NECK: Normal range of motion, supple without lymphadenopathy, JVD, or masses. LUNGS: Breath sounds equal, clear to auscultation bilaterally. No wheezes, and no crackles. No accessory muscle use. HEART: Regular rate and rhythm, normal S1 and S2 without murmur, rub or gallop. ABDOMEN: Soft, nontender, not distended, normoactive bowel sounds, no guarding, no rebound, no masses. No hepatomegaly or splenomegaly. MUSCULOSKELETAL: LROM of lower extremities R>L. Normal range of motion at RUE, LUE joints. No bony deformities or tenderness. No CVA tenderness. UPPER EXTREMITIES: 2+ pulses, warm, well-perfused. No cyanosis. No clubbing. No peripheral edema. LOWER EXTREMITIES: 2+ pulses, warm, well-perfused. No calf tenderness. No peripheral edema. NEUROLOGICAL: Cranial nerves II-XII intact. Normal speech. Gait not observed. PSYCHIATRIC: Cooperative. Good eye contact. Appropriate mood and affect. SKIN: Warm, dry, normal turgor, no rashes or lesions noted, normal capillary refill. Laboratory Results - last 24 hr 05/25/18 05/26/18 05/26/18 21:38 00:05 00:05 WBC 13.5 H RBC 4.14 Hgb 13.9 Hct 39.3 MCV 94.9 MCH 33.5 D MCHC 35.3 RDW 12.7 D Plt Count 276 MPV 8.3 Absolute Neuts (auto) 8.4 H Neutrophils % 62.2 Lymphocytes % 26.4 Monocytes % 8.0 Eosinophils % 2.7 D Basophils % 0.7 Nucleated RBC % 0 Sodium 140 Potassium 3.8 Chloride 106 Carbon Dioxide 28 Anion Gap 7 L BUN 23 H Creatinine 0.7 Creat Clearance w eGFR > 60 Random Glucose 83 Calcium 8.9 Total Bilirubin 0.3 AST 9 L ALT 17 Alkaline Phosphatase 62 Total Protein 7.0 Albumin 3.8 Urine Color Yellow Urine Appearance Clear Urine pH 6.0 Ur Specific [place] 1.020 Urine Protein Negative Urine Glucose (UA) Negative Urine Ketones Trace H Urine Blood Negative Urine Nitrite Negative Urine Bilirubin Negative Urine Urobilinogen Negative Ur Leukocyte Esterase Negative ASSESSMENT/PLAN: This is a 43 y/o woman placed in Observation for Weakness, MS Exacerbation for further evaluation of their emergent condition. Plan: See Problem List FEN NS@75ml/hr Replete lytes prn Regular Diet DVT ppx OOB SCDs Consider AC id LOS > 48 hrs Dispo: Observation Problem List - Problem (1) Weakness Assessment/Plan: Likely secondary to MS Flare Head CT- no ICH Appreciate Neurology consult Monitor CBC, BMP Gentle IVF PT eval Fall precautions Code(s): R53.1 - WEAKNESS (2) Multiple sclerosis exacerbation Assessment/Plan: Patient not on any treatments or meds Appreciate Neurology consult Head CT- no ICH Code(s): G35 - MULTIPLE SCLEROSIS (3) Falls frequently Assessment/Plan: Likely secondary to MS flare Code(s): R29.6 - REPEATED FALLS (4) Seizure Assessment/Plan: Consider to monitor and treat with interventions accordingly Code(s): R56.9 - UNSPECIFIED CONVULSIONS (5) Anxiety Assessment/Plan: Continue Ativan Code(s): F41.9 - ANXIETY DISORDER, UNSPECIFIED Visit type - Emergency Visit Emergency Visit: Yes ED Registration Date: 05/25/18 Care time: The patient presented to the Emergency Department on the above date and was hospitalized for further evaluation of their emergent condition. - New Patient This patient is new to me today: Yes Date on this admission: 05/26/18 - Critical Care Critical Care patient: No
[2018-05-26] MEDS ORDERED: oxyCODONE HCL 5 MG TABLET PO ONE (06:46)
[2018-05-26] MEDS: SODIUM CHLORIDE 1,000 ML IV SCH ×2 (07:07→23:08)
[2018-05-26] MEDS ORDERED: ONDANSETRON *ODT* 4 MG TABLET SL PRN (07:51)
--- NOTE | 2018-05-26 07:54 | PN ---
Progress Note, Physician Chief Complaint: ASLEEP EVENTS AND NOTES REVIEWED NAD - Current Medication List Current Medications: Active Medications Acetaminophen (Tylenol -) 650 mg PO Q6H PRN PRN Reason: PAIN OR FEVER Sodium Chloride (Normal Saline -) 1,000 mls @ 75 mls/hr IV ASDIR [facility]ICO[facility] Last Admin: 05/26/18 07:07 Dose: 75 mls/hr - Objective Vital Signs: Vital Signs Temperature 98.3 F 05/26/18 05:16 Pulse Rate 87 05/26/18 05:16 Respiratory Rate 18 05/26/18 05:16 Blood Pressure 111/60 05/26/18 05:16 O2 Sat by Pulse Oximetry (%) 95 05/26/18 05:27 Constitutional: Yes: Other Cardiovascular: Yes: Regular Rate and Rhythm Respiratory: Yes: CTA Bilaterally Gastrointestinal: Yes: Soft Genitourinary: Yes: Other Musculoskeletal: Yes: Muscle Weakness Extremities: Yes: Other Integumentary: Yes: Rash Neurological: Yes: Pre-Existing Deficit ...Motor Strength: LLE, RLE Psychiatric: Yes: Other Labs: CBC, BMP 05/26/18 00:05 05/26/18 00:05 Problem List - Problems (1) Anxiety Code(s): F41.9 - ANXIETY DISORDER, UNSPECIFIED (2) Weakness Code(s): R53.1 - WEAKNESS (3) Bilateral lower extremity edema Code(s): R60.0 - LOCALIZED EDEMA (4) DVT prophylaxis Code(s): [id number] - (5) Multiple sclerosis exacerbation Code(s): G35 - MULTIPLE SCLEROSIS Assessment/Plan STEROIDS IV, WILL DISCUSS WITH NEUROLOGY PT EVAL GI AND DVT PROPHYLAXIS PAIN CONTROL
[2018-05-26] MEDS ORDERED: levETIRAcetam 500 MG TABLET (FP) PO SCH (10:00)
[2018-05-26] MEDS ORDERED: levETIRAcetam 500 MG TABLET (FP) PO ONE ×2 (10:38→20:47)
[2018-05-26] MEDS ORDERED: levETIRAcetam 250 MG TABLET (FP) PO ONE ×2 (10:39→20:47)
[2018-05-26] MEDS: HEPARIN NA (PORCINE) 5,000 UNITS/ML 1ML VIAL SQ SCH ×2 (10:45→21:40)
[2018-05-26] MEDS: PANTOPRAZOLE 40 MG TABLET (FP) PO SCH (10:46)
--- NOTE | 2018-05-26 13:16 | EKG ---
Test Reason : Blood Pressure : / mmHG Vent. Rate : 087 BPM Atrial Rate : 087 BPM P-R Int : 124 ms QRS Dur : 088 ms QT Int : 364 ms P-R-T Axes : 060 067 064 degrees QTc Int : 438 ms NORMAL SINUS RHYTHM WITH SINUS ARRHYTHMIA NORMAL ECG WHEN COMPARED WITH ECG OF 18-JAN-2018 06:54, NO SIGNIFICANT CHANGE WAS FOUND Confirmed by ALLAN VELÁZQUEZ MD ([id number]) on 05/26/2018 1:15:42 PM Referred By: Confirmed By:ALLAN VELÁZQUEZ MD
[2018-05-26] MEDS: methylPREDNISolone NA SUCC 125 MG/2 ML VIAL IVPB SCH ×2 (17:58→22:31)
--- NOTE | 2018-05-26 19:24 | CONSULT ---
Consult - text type - Consultation Consultation Note: NEUROLOGY CONSULTATION is greatly appreciated: Events reviewed and discussed with brother at the bedside. This 43 yo RH s woman lives with her mother in [place] although they are estranged. Well-know to me with migraine headaches, seizure disorder, Restless legs syndrome and relapsing-remitting Multiple Sclerosis. Is seeing a neurologist in [place], Dr. Wiggins, and has home services "set up" but hasn't started on a medication treatment. Over the last 2-3 weeks has become essentially non-ambulatory with frequent falls and urinary incontinence. Unable to perform any ADL's. Had updated MRI of brain in [place] yesterday. Awaiting results. Pt c/o severe pains in the legs- not on pramipexole. EMANUEL: Unkempt. -Lhermitte's NEURO: Mild OMS with unusual/inappropriate affect. Speech mildly dysarthric. CN: Full christianson and EOM's. No facial. Decreased tongue MANUEL's. Gag OK Motor: No drift. B/L hip flexion weakness with normal ankle DF. Decreased MANUEL's. Brisk reflexes. B/L Babinskis Coord: + FTN dystaxia Sensory: Reduced vibration to both knees. IMP: 1. Multiple Sclerosis with exacerbation. Probable spinal plaque with increased paraplegia and neurogenic bladder. 2. Seizure disorder 3. Migraine Headaches 4. RLS. SUGGEST: Solumedrol 500 mg IVPB q 12 hrs x 5 days followed by out patient prednisone taper Check B12, TSH, CK. R/O Occult infection (UA normal) Physiatry eval and PT Urology consultation Continue levetiracetam 750 mg PO q 12 hrs. Resume pramipexole 0.25 mg PO q 8 hrs and increase as necessary and tolerated for pain. Await recent out patient MRI Thank you very much, Red Abreu MD
[2018-05-26] MEDS: PRAMIPEXOLE DIHYDROCHLORIDE 0.25 MG TABLET PO SCH (22:28)
[2018-05-26] MEDS: oxyCODONE HCL 5 MG TABLET PO PRN (23:46)
[2018-05-27] MEDS: ACETAMINOPHEN 325 MG TABLET (FP) PO PRN (03:55)
[2018-05-27] MEDS ORDERED: MELATONIN 5 MG TABLETS PO ONE ×2 (04:01→04:15)
[2018-05-27] MEDS: SODIUM CHLORIDE 1,000 ML IV SCH (05:40)
[2018-05-27] MEDS: PRAMIPEXOLE DIHYDROCHLORIDE 0.25 MG TABLET PO SCH ×3 (05:58→22:16)
[2018-05-27 09:32] LABS: HEMATOCRIT 35.3 % (32.4-45.2); HEMOGLOBIN 12.4 GM/dL (10.7-15.3); MCH 33.1 pg (25.7-33.7); MCHC 35.1 g/dl (32.0-36.0); MEAN CELL VOLUME 94.2 fl (80-96); MEAN PLT VOLUME 8.8 fl (7.5-11.1); PLATELET COUNT 255 K/MM3 (134-434); RBC 3.75 M/mm3 (3.60-5.2); RDW 12.8 % (11.6-15.6); WHITE BLOOD COUNT 13.9 K/mm3 (4.0-10.0)
[2018-05-27] MEDS ORDERED: levETIRAcetam 500 MG TABLET (FP) PO ONE ×2 (09:50→21:40)
[2018-05-27] MEDS ORDERED: levETIRAcetam 250 MG TABLET (FP) PO ONE ×2 (09:50→21:40)
[2018-05-27] MEDS ORDERED: PT OWN MED DRAWER 7, Y5N ONE ×2 (09:51→14:06)
[2018-05-27] MEDS: methylPREDNISolone NA SUCC 125 MG/2 ML VIAL IVPB SCH ×2 (09:57→22:15)
[2018-05-27] MEDS: HEPARIN NA (PORCINE) 5,000 UNITS/ML 1ML VIAL SQ SCH ×2 (09:57→22:15)
[2018-05-27] MEDS: PANTOPRAZOLE 40 MG TABLET (FP) PO SCH (09:58)
[2018-05-27] MEDS: oxyCODONE HCL 5 MG TABLET PO PRN ×3 (09:58→22:21)
[2018-05-27 10:01] LABS: ANION GAP 9 MMOL/L (8-16); BLOOD UREA NITROGEN 12 mg/dL (7-18); CALCIUM 8.6 mg/dL (8.5-10.1); CHLORIDE 110 mmol/L (98-107); CO2 21 mmol/L (21-32); CREATININE 0.6 mg/dL (0.55-1.3); GLUCOSE,RANDOM 142 mg/dL (74-106); PHOSPHOROUS 2.5 mg/dL (2.5-4.9); POTASSIUM 3.6 mmol/L (3.5-5.1); SODIUM 140 mmol/L (136-145)
--- NOTE | 2018-05-27 13:09 | PN ---
Progress Note, Physician - Current Medication List Current Medications: Active Medications Acetaminophen (Tylenol -) 650 mg PO Q6H PRN PRN Reason: PAIN OR FEVER Last Admin: 05/27/18 03:55 Dose: 650 mg Heparin Sodium (Porcine) (Heparin -) 5,000 unit SQ BID [facility] Last Admin: 05/27/18 09:57 Dose: 5,000 unit Sodium Chloride (Normal Saline -) 1,000 mls @ 75 mls/hr IV ASDIR [facility] Last Admin: 05/27/18 05:40 Dose: Not Given Levetiracetam 500 mg/ (Levetiracetam 250 mg) 750 mg PO BID [facility] Last Admin: 05/27/18 09:57 Dose: 750 mg Methylprednisolone Sodium Succinate (Solu-Medrol -) 500 mg IVPB BID [facility] Last Admin: 05/27/18 09:57 Dose: 500 mg Ondansetron HCl (Zofran Odt -) 4 mg SL Q6H PRN PRN Reason: NAUSEA AND/OR VOMITING Oxycodone HCl (Roxicodone -) 5 mg PO Q6H PRN PRN Reason: PAIN LEVEL 7 - 10 Last Admin: 05/27/18 09:58 Dose: 5 mg Pantoprazole Sodium (Protonix -) 40 mg PO DAILY [facility] Last Admin: 05/27/18 09:58 Dose: 40 mg Pramipexole Dihydrochloride (Mirapex -) 0.25 mg PO TID [facility] Last Admin: 05/27/18 05:58 Dose: 0.25 mg - Objective Vital Signs: Vital Signs Temperature 98.1 F 05/27/18 06:00 Pulse Rate 98 H 05/27/18 06:00 Respiratory Rate 20 05/27/18 06:00 Blood Pressure 109/50 L 05/27/18 06:00 O2 Sat by Pulse Oximetry (%) 95 05/27/18 02:00 Cardiovascular: Yes: S1, S2 Respiratory: Yes: Regular, CTA Bilaterally Gastrointestinal: Yes: Normal Bowel Sounds, Soft Neurological: Yes: Unsteady Gait, Weakness Labs: CBC, BMP 05/27/18 08:00 05/27/18 08:00 Problem List - Problems (1) Weakness Assessment/Plan: Likely secondary to MS Flare Head CT- no ICH Appreciate Neurology consult Monitor CBC, BMP Gentle IVF PT eval Fall precautions Code(s): R53.1 - WEAKNESS (2) Multiple sclerosis exacerbation Assessment/Plan: iv steroids per neuro Appreciate Neurology consult Head CT- no ICH Code(s): G35 - MULTIPLE SCLEROSIS (3) Seizure Code(s): R56.9 - UNSPECIFIED CONVULSIONS
[2018-05-27] MEDS ORDERED: methylPREDNISolone NA SUCC 125 MG/2 ML VIAL ONE (22:07)
[2018-05-28] MEDS: ACETAMINOPHEN 325 MG TABLET (FP) PO PRN (02:56)
[2018-05-28] MEDS: SODIUM CHLORIDE 1,000 ML IV SCH (02:59)
[2018-05-28] MEDS: oxyCODONE HCL 5 MG TABLET PO PRN ×2 (04:27→22:13)
[2018-05-28] MEDS: PRAMIPEXOLE DIHYDROCHLORIDE 0.25 MG TABLET PO SCH ×3 (05:09→22:14)
[2018-05-28] MEDS ORDERED: PT OWN MED DRAWER 7, Y5N ONE ×2 (06:18→13:58)
--- NOTE | 2018-05-28 09:31 | PN ---
Progress Note, Physician - Current Medication List Current Medications: Active Medications Acetaminophen (Tylenol -) 650 mg PO Q6H PRN PRN Reason: PAIN OR FEVER Last Admin: 05/28/18 02:56 Dose: 650 mg Heparin Sodium (Porcine) (Heparin -) 5,000 unit SQ BID [facility] Last Admin: 05/27/18 22:15 Dose: 5,000 unit Sodium Chloride (Normal Saline -) 1,000 mls @ 75 mls/hr IV ASDIR [facility] Last Admin: 05/28/18 02:59 Dose: 75 mls/hr Levetiracetam 500 mg/ (Levetiracetam 250 mg) 750 mg PO BID [facility] Last Admin: 05/27/18 22:16 Dose: 750 mg Methylprednisolone Sodium Succinate (Solu-Medrol -) 500 mg IVPB BID [facility] Last Admin: 05/27/18 22:15 Dose: 500 mg Ondansetron HCl (Zofran Odt -) 4 mg SL Q6H PRN PRN Reason: NAUSEA AND/OR VOMITING Oxycodone HCl (Roxicodone -) 5 mg PO Q6H PRN PRN Reason: PAIN LEVEL 7 - 10 Last Admin: 05/28/18 04:27 Dose: 5 mg Pantoprazole Sodium (Protonix -) 40 mg PO DAILY [facility] Last Admin: 05/27/18 09:58 Dose: 40 mg Pramipexole Dihydrochloride (Mirapex -) 0.25 mg PO TID [facility] Last Admin: 05/28/18 05:09 Dose: 0.25 mg - Objective Vital Signs: Vital Signs Temperature 98.2 F 05/28/18 06:00 Pulse Rate 81 05/28/18 06:00 Respiratory Rate 20 05/28/18 06:00 Blood Pressure 100/53 L 05/28/18 06:00 O2 Sat by Pulse Oximetry (%) 95 05/28/18 04:00 Cardiovascular: Yes: Regular Rate and Rhythm Respiratory: Yes: Regular, CTA Bilaterally Gastrointestinal: Yes: Normal Bowel Sounds, Soft Labs: CBC, BMP 05/27/18 08:00 05/27/18 08:00 Problem List - Problems (1) Weakness Assessment/Plan: Likely secondary to MS Flare Head CT- no ICH Appreciate Neurology consult Monitor CBC, BMP Gentle IVF PT eval Fall precautions Code(s): R53.1 - WEAKNESS (2) Multiple sclerosis exacerbation Assessment/Plan: iv steroids per neuro Appreciate Neurology consult Head CT- no ICH Code(s): G35 - MULTIPLE SCLEROSIS (3) Seizure Code(s): R56.9 - UNSPECIFIED CONVULSIONS
[2018-05-28] MEDS ORDERED: levETIRAcetam 250 MG TABLET (FP) PO ONE ×2 (09:57→20:59)
[2018-05-28] MEDS ORDERED: levETIRAcetam 500 MG TABLET (FP) PO ONE ×2 (09:57→20:59)
[2018-05-28] MEDS: methylPREDNISolone NA SUCC 125 MG/2 ML VIAL IVPB SCH ×2 (10:21→22:13)
[2018-05-28] MEDS: PANTOPRAZOLE 40 MG TABLET (FP) PO SCH (10:22)
[2018-05-28] MEDS: HEPARIN NA (PORCINE) 5,000 UNITS/ML 1ML VIAL SQ SCH ×2 (10:22→22:13)
[2018-05-29] MEDS: oxyCODONE HCL 5 MG TABLET PO PRN (06:59)
[2018-05-29] MEDS: PRAMIPEXOLE DIHYDROCHLORIDE 0.25 MG TABLET PO SCH ×2 (06:59→13:16)
--- NOTE | 2018-05-29 07:40 | PN ---
Progress Note, Physician Chief Complaint: AWAKE ALERT C/O OF SPEECH PROBLEMS DIFFICULTY SPEAKING - Current Medication List Current Medications: Active Medications Acetaminophen (Tylenol -) 650 mg PO Q6H PRN PRN Reason: PAIN OR FEVER Last Admin: 05/28/18 02:56 Dose: 650 mg Heparin Sodium (Porcine) (Heparin -) 5,000 unit SQ BID [facility] Last Admin: 05/28/18 22:13 Dose: 5,000 unit Levetiracetam 500 mg/ (Levetiracetam 250 mg) 750 mg PO BID [facility] Last Admin: 05/28/18 22:14 Dose: 750 mg Methylprednisolone Sodium Succinate (Solu-Medrol -) 500 mg IVPB BID [facility] Last Admin: 05/28/18 22:13 Dose: 500 mg Ondansetron HCl (Zofran Odt -) 4 mg SL Q6H PRN PRN Reason: NAUSEA AND/OR VOMITING Oxycodone HCl (Roxicodone -) 5 mg PO Q6H PRN PRN Reason: PAIN LEVEL 7 - 10 Last Admin: 05/29/18 06:59 Dose: 5 mg Pantoprazole Sodium (Protonix -) 40 mg PO DAILY [facility] Last Admin: 05/28/18 10:22 Dose: 40 mg Pramipexole Dihydrochloride (Mirapex -) 0.25 mg PO TID [facility] Last Admin: 05/29/18 06:59 Dose: 0.25 mg - Objective Vital Signs: Vital Signs Temperature 97.5 F L 05/29/18 02:06 Pulse Rate 59 L 05/29/18 02:06 Respiratory Rate 18 05/29/18 04:00 Blood Pressure 93/55 L 05/29/18 02:06 O2 Sat by Pulse Oximetry (%) 95 05/29/18 04:00 Constitutional: Yes: Mild Distress Eyes: Yes: WNL HENT: Yes: WNL Neck: Yes: WNL Cardiovascular: Yes: Regular Rate and Rhythm Respiratory: Yes: WNL Gastrointestinal: Yes: WNL Genitourinary: Yes: WNL Musculoskeletal: Yes: Muscle Weakness Edema: No Peripheral Pulses WNL: Yes Integumentary: Yes: WNL Wound/Incision: Yes: Clean/Dry Neurological: Yes: Pre-Existing Deficit, Weakness ...Motor Strength: LLE, RLE Psychiatric: Yes: Other Labs: CBC, BMP 05/27/18 08:00 05/27/18 08:00 Problem List - Problems (1) Anxiety Code(s): F41.9 - ANXIETY DISORDER, UNSPECIFIED (2) Weakness Code(s): R53.1 - WEAKNESS (3) Bilateral lower extremity edema Code(s): R60.0 - LOCALIZED EDEMA (4) DVT prophylaxis Code(s): [id number] - (5) Multiple sclerosis exacerbation Code(s): G35 - MULTIPLE SCLEROSIS Assessment/Plan STEROIDS IV WILL DISCUSS WITH NEUROLOGY MRI BRAIN PT EVAL AND SWALLOW EVAL GI AND DVT PROPHYLAXIS PAIN CONTROL
[2018-05-29] MEDS: ACETAMINOPHEN 325 MG TABLET (FP) PO PRN (08:22)
[2018-05-29] MEDS ORDERED: levETIRAcetam 250 MG TABLET (FP) PO ONE ×2 (09:21→21:04)
[2018-05-29] MEDS ORDERED: levETIRAcetam 500 MG TABLET (FP) PO ONE ×2 (09:21→21:03)
[2018-05-29] MEDS: methylPREDNISolone NA SUCC 125 MG/2 ML VIAL IVPB SCH ×2 (09:39→21:36)
[2018-05-29] MEDS: PANTOPRAZOLE 40 MG TABLET (FP) PO SCH (09:39)
[2018-05-29] MEDS: HEPARIN NA (PORCINE) 5,000 UNITS/ML 1ML VIAL SQ SCH ×2 (09:39→21:37)
--- NOTE | 2018-05-29 14:54 | CONSULT ---
Admitting History and Physical - Primary Care Physician PCP: Saul Fernandez - Admission History of Present Illness: Unfortunate 43 yo RH s woman lives with relapsing-remitting Multiple Sclerosis, admitted for increasing weakness and falls. Patient has not been taking her MS medications. NEURO IMP: 1. Multiple Sclerosis with exacerbation. Probable spinal plaque with increased paraplegia and neurogenic bladder. 2. Seizure disorder 3. Migraine Headaches 4. RLS This is my first consult with this pt. History Source: Patient, Medical Record Limitations to Obtaining History: Clinical Condition - Past Medical History [employer]: Yes: Multiple Sclerosis, Seizure Cardiovascular: Yes: Hyperlipdemia Gastrointestinal: Yes: GERD ...LMP: 07/20/13 ...: No Musculoskeletal: Yes: Chronic low back pain - Past Surgical History Past Surgical History: Yes: Bariatric Surgery - Smoking History Smoking history: Current every day smoker Have you smoked in the past 12 months: Yes Aproximately how many cigarettes per day: 20 - Alcohol/Substance Use Hx Alcohol Use: No - Social History ADL: Family Assistance History of Recent Travel: No History - Admission Reason For Visit: FALL - Diagnostics X-ray: Report Reviewed CT Scan: Report Reviewed - General Mental Status: Alert and Oriented, Awake and Alert, Able to Follow Commands, Vague (Word errors, impaired insight/reasoning suspected,) Attention: Mild Impairment Ability to Follow Directions: Good Head/Neck Control: Good - Hearing Hearing: Functional Hearing: Normal Hearing Aide: No With Patient: No Speech Evaluation - Communication Primary Language: AZERI Communication: Yes: Dysarthria (mild) Oral Expression Ability: Yes: Mild Impairment - Speech Production Able to Make Needs Known: Yes: Mildly Impaired Intelligibility: Yes: WNL - Speech Characteristics Voice Loudness: Normal Voice Pitch: Yes: Normal Voice Phonatory-based Quality: Yes: Normal Nasal Resonance: Normal Articulation: Yes: Imprecise - Language/Auditory Comprehension Follows: Yes: 1 Stage Simple Commands Observation: Able to respond to yes/no queries: Yes, Yes/No Confusion: No, Comprehends Conversational Speech: Yes - Language/Verbal Expression Aphasia: Yes: Anomia, Paraphrasic Errors, Neologisms, Apraxia, Sound Errors Able to Respond to Simple Queries: Yes: Mildly Impaired Able to Communicate Wants and Needs: Yes: Mildly Impaired Functional Communication Status: Yes: Mildly Impaired - Swallow Evaluation/Bedside Assessment Current Nutritional Intake: Regular, Thin Liquids Oral Secretions: Yes: WFL Dentition: Yes: Adequate Facial Symmetry at Rest: Symmetrical Facial Symmetry on Retraction: Symmetrical Against Resistance Opening: Normal Against Resistance Closing: Normal Pucker Lips: Normal Smile: Normal Lingual Movement: Symmetric Lingual Speed of Movement: Reduced Lingual Movement Strgth Against Opposition: Reduced Lingual Movement Characteristics: Normal Velopharyngeal Movement: Normal Laryngeal Movement: Able to Palpate, Reduced Excursion Rate of Intake: WFL Bolus Size: WFL Labial Seal: WFL Chewing: WFL Oral Prep Time: WFL A-P Transit: WFL Pocketing: None Timing of Swallow: Delayed Coughing/Throat Clear: No Change in Voice: No Recommendations - Speech Evaluation, Impression/Plan Impression: Cognitive deficits c/w MS, rapid speech with word/sound errors. Fair awareness, able to correct with cues to slow down and think as she speaks. Mildly labored swallow, suspect possible stasis, which pt blamed on "the chocolate part of the cookie. My brother brought the wrong cookie!" - Disposition Discharge to: [facility] - Dysphagia Impressions/Plan Dysphagia Impressions: Mild Impairment, Risk of Aspiration *Silent aspiration: cannot be R/O at bedside Dysphagia Treatment Plan: Small Bites, Chin Tuck/Down, Facilitative Feeding, 1/ 2 tsp. at a time, Elevate HOB during feed, Other (Alternate solids with liquids. Complete meal with liquid.) Recommendations: Modified Barium Swallow (if difficulty reported or observed), Other (Linquistic/Cognitive therapy at [place].) - Recommendations Diet Consistency: Regular (soft, easy to chew) Medication Administration: Whole with water Liquids: Thin Liquids
--- NOTE | 2018-05-29 21:40 | PN ---
Progress Note (short form) - Note Progress Note: NEUROLOGY PROGRESS: Events reviewed, Pt. examined. Now Day #3 Solumedrol. Leg and arm pains markedly improved on Pramipexole 0.25 mg TID. Pt. reports 2 days of episodic hallucinations-seeing dolls in a doll factory. In addition she feels "wired" and didn't sleep last night. Took cat naps today. Exam: Neg Lhermitte's Neuro: Awake, hyperalert, Talkative, fluent. CN's II-XII: Normal without nystagmus No drift. Elevates legs against gravity. Normal ankle dorsiflexion. B/L Babinskis Feels vibration on ankles. IMP: Exam shows some improvement in strength and the myelopathic features of the MS exacerbation. Toxic-Metabolic encephalopathy (features of delirium) probably due to high-dose steroids and DA agonists. R/O Hyperglycemia. SUGGEST: Check FS BG now and q 12 hrs. BMP q AM Reduce pramipexole to 0.25 mg BID after breakfast and dinner. Continue Solumedrol 500 mg IVPB q 12 hrs through Tuesday. Quetiapine 12.5-25 q HS for sleep and hallucinations. Thank you very much, Red Abreu MD
[2018-05-29] MEDS ORDERED: QUEtiapine FUMARATE 25 MG TABLET (FP) PO SCH (22:00)
[2018-05-30 07:31] LABS: HEMATOCRIT 32.2 % (32.4-45.2); HEMOGLOBIN 11.2 GM/dL (10.7-15.3); MCH 32.5 pg (25.7-33.7); MCHC 34.8 g/dl (32.0-36.0); MEAN CELL VOLUME 93.6 fl (80-96); MEAN PLT VOLUME 8.7 fl (7.5-11.1); PLATELET COUNT 258 K/MM3 (134-434); RBC 3.44 M/mm3 (3.60-5.2); WHITE BLOOD COUNT 12.1 K/mm3 (4.0-10.0)
[2018-05-30] MEDS: ACETAMINOPHEN 325 MG TABLET (FP) PO PRN ×2 (08:32→17:17)
--- NOTE | 2018-05-30 08:32 | DS ---
Physical Examination Vital Signs: Vital Signs Temperature 98.3 F 05/30/18 06:53 Pulse Rate 96 H 05/30/18 06:53 Respiratory Rate 18 05/30/18 06:53 Blood Pressure 122/58 L 05/30/18 06:53 O2 Sat by Pulse Oximetry (%) 98 05/29/18 21:00 Findings/Remarks: feeling better much more alert Constitutional: Yes: Mild Distress Eyes: Yes: WNL HENT: Yes: WNL Neck: Yes: WNL Cardiovascular: Yes: Regular Rate and Rhythm Respiratory: Yes: WNL Gastrointestinal: Yes: WNL Musculoskeletal: Yes: Muscle Weakness Edema: No Integumentary: Yes: Bruising Wound/Incision: Yes: Clean/Dry Neurological: Yes: Pre-Existing Deficit, Unsteady Gait, Weakness ...Motor Strength: LLE, RLE Psychiatric: Yes: WNL Labs: CBC, BMP 05/30/18 06:30 Discharge Summary Reason For Visit: FALL Current Active Problems Anxiety (Acute) Falls frequently (Acute) Weakness (Acute) toxic metabolic encephalopathy Procedures: Principal: labs/ Hospital Course: admitted for exacerbation of MS and toxic metabolic encephalopathy, treated iv solumedrol and pt Condition: Improved - Instructions Diet, Activity, Other Instructions: SNF Prednisone taper as written on Orders Referrals: Arabella Garcia MD [Primary Care Provider] - Disposition: [facility] - Home Medications Comprehensive Discharge Medication List: Ambulatory Orders levETIRAcetam [Keppra -] 750 mg PO BID #60 tablet 07/31/13 Acetaminophen [Tylenol .Regular Strength -] 650 mg PO Q6H PRN tablet 04/10/17 Nicotine Patch [Nicoderm Patch -] 14 mg TD DAILY patch 04/10/17 Vitamin D - 50,000 units PO WEEKLY 01/18/18 Lorazepam [Ativan] 0.5 mg PO HS PRN #7 tab 01/24/18 Pantoprazole Sodium [Protonix -] 40 mg PO DAILY tablet.ec 01/24/18 Polyethylene Glycol 3350 [Miralax 119 gm Btl -] 17 gm PO DAILY bottle 01/24/18 Sennosides [Senna -] 1 tab PO HS tablet 01/24/18 predniSONE [Deltasone -] 80 mg PO DAILY #14 tablet MDD 1 01/24/18 Acetaminophen [Tylenol .Regular Strength -] 650 mg PO Q6H PRN tablet 05/30/18 Heparin - 5,000 unit SQ BID vial 05/30/18 Ondansetron [Zofran Odt -] 4 mg SL Q6H PRN tab.rapdis 05/30/18 Pantoprazole Sodium [Protonix -] 40 mg PO DAILY tablet.ec 05/30/18 Pramipexole Dihydrochloride [Mirapex -] 0.25 mg PO BIDPC tablet 05/30/18 Quetiapine Fumarate [Seroquel -] 25 mg PO HS tablet 05/30/18 levETIRAcetam [Keppra -] 750 mg PO BID tablet 05/30/18 oxyCODONE HCL [Roxicodone -] 5 mg PO Q6H PRN tablet MDD 4 05/30/18 predniSONE [Deltasone -] See Taper PO DAILY #60 tablet 05/30/18
[2018-05-30 09:01] LABS: ALBUMIN 2.7 g/dl (3.4-5.0); ALK PHOS 36 U/L (45-117); ANION GAP 7 MMOL/L (8-16); BILIRUBIN,TOTAL 0.4 mg/dL (0.2-1); BLOOD UREA NITROGEN 25 mg/dL (7-18); CHLORIDE 110 mmol/L (98-107); CO2 27 mmol/L (21-32); CREATININE 0.6 mg/dL (0.55-1.3); GLUCOSE,RANDOM 111 mg/dL (74-106); MAGNESIUM 2.3 mg/dL (1.8-2.4); SGOT/AST 11 U/L (15-37); SGPT/ALT 25 U/L (13-61); SODIUM 144 mmol/L (136-145); TOT PROT 5.4 g/dl (6.4-8.2)
[2018-05-30] MEDS: PRAMIPEXOLE DIHYDROCHLORIDE 0.25 MG TABLET PO SCH ×2 (09:09→17:32)
[2018-05-30] MEDS ORDERED: levETIRAcetam 500 MG TABLET (FP) PO ONE (09:22)
[2018-05-30] MEDS ORDERED: levETIRAcetam 250 MG TABLET (FP) PO ONE (09:22)
[2018-05-30] MEDS: HEPARIN NA (PORCINE) 5,000 UNITS/ML 1ML VIAL SQ SCH (09:28)
[2018-05-30] MEDS: PANTOPRAZOLE 40 MG TABLET (FP) PO SCH (09:28)
[2018-05-30] MEDS: methylPREDNISolone NA SUCC 125 MG/2 ML VIAL IVPB SCH (09:28)
[2018-05-30 12:29] LABS: POTASSIUM 2.9 mmol/L (3.5-5.1)
[2018-05-30] MEDS: KCL 10 MEQ IVPB 10 MEQ/100 ML INFUS.BAG IVPB SCH ×2 (13:00→15:56)
[2018-05-30] MEDS: POTASSIUM CHLORIDE TABS 20 MEQ TABLET.ER (FP) PO ONE ×2 (13:32→15:56)
[2018-05-30 14:38] VITALS: BP 98/53; PULSE 69; TEMP 97.8
[2018-05-30] MEDS ORDERED: methylPREDNISolone NA SUCC 125 MG/2 ML VIAL IVPB ONE (15:00)
--- NOTE | 2018-05-30 16:02 | PN ---
Progress Note (short form) - Note Progress Note: NEUROLOGY PROGRESS: Events reviewed. Case discussed with Dr. Fernandez this AM. Now Day #4 Solumedrol. Reports ambulating with walker with PT. Low K 2.3 and provided IV KCL. TSH 0.13 Dose of pramipexole lowered to 0.25 mg BID and no longer "hallucinating." BS range from 90s-120s. Exam: Neg [facility] Neuro: Awake, Talkative, fluent. CN's II-XII: Normal without nystagmus No drift. Strong grasps B/L. Reflexes brisk and symmetric throughout. B/L [place] Feels vibration on ankles. Can ambulate, slightly wide based and shuffling. IMP: Exam shows resolving features of MS exacerbation. Toxic-Metabolic encephalopathy (features of delirium) SUGGEST: Continue pramipexole 0.25 mg BID Pending transfer to SNF for PT Taper prednisone as follows: 80 mg po x2days; 60 mg x2d; 40 mg x 2d; and 20 mg x 2 days. Advise maintenance therapy such as ocrelizumab infusion as out- patient Re-check full thyroid panel and Rx if indicated. Thank you very much, Red Abreu MD
== END 2018-05-30 18:29 | DRG 58 ==
LOC: JER 20:53 → JERBED 05-26 02:04 → J8W 05-26 05:13 → OBSVTOIN 05-29 15:05
PROVIDERS: ADMIT Family Medicine; ATTEND Family Medicine
DX: G35 Multiple sclerosis (principal); G92 Toxic encephalopathy; R53.1 Weakness; R29.6 Repeated falls; F41.9 Anxiety disorder, unspecified; R13.10 Dysphagia, unspecified; G43.909 Migraine, unspecified, not intractable, without status migrainosus; G25.81 Restless legs syndrome; G40.909 Epilepsy, unspecified, not intractable, without status epilepticus
CPT/HCPCS: 36415; 80048; 80053; 81003; 82607; 82962; 83735; 84100; 84443; 85025; 85027; 93005; 93010; 97116-GP; 97162-GP; 99281-25; G0378; J1644; J7030

== ENCOUNTER 2018-06-30 18:25 | Emergency (ER) | payer OTHER ==
[2018-06-30 19:26] VITALS: BP 96/62; PULSE 85; TEMP 98; BMI 28.3
--- NOTE | 2018-06-30 20:21 | PDOC ---
History of Present Illness - General Chief Complaint: Injury Stated Complaint: FALL, KNEE PAIN Time Seen by Provider: 06/30/18 19:37 - History of Present Illness Initial Comments: 06/30/18 20:21 Ms. Marie is a 43 yo female w/ pmh of seizures (well controlled on keppra) and MS who presents for evaluation after fall earlier today. Patient was at [facility] today due to be discharged however fell when getting up from using the toilet at approximately 2pm. Patient reports she fell down on her right knee at this time and required assistance getting up. Patient denies any head injury or LOC. Patient also endorses back pain between shoulder blades since approximately 5pm tonight. Patient also endorses being a current smoker. The patient denies chest pain, shortness of breath, headache and dizziness. Denies fever, chills, nausea, vomit, diarrhea and constipation. Denies dysuria, frequency, urgency and hematuria. Past History - Past Medical History Allergies/Adverse Reactions: Allergies Allergy/AdvReac Type Severity Reaction Status Date / Time clarithromycin [From Biaxin] Allergy Verified 06/30/18 19:26 Home Medications: Ambulatory Orders Acetaminophen [Tylenol] 650 mg PO QID PRN 06/30/18 Amoxicillin - [Amoxicillin 500mg Capsule -] 500 mg PO TID 06/30/18 Ergocalciferol [Vitamin D2] 50,000 unit PO Q7D@1000 06/30/18 Levetiracetam 750 mg PO BID 06/30/18 Oxycodone HCl 5 mg PO QID PRN 06/30/18 Pantoprazole Sodium [Protonix] 40 mg PO DAILY 06/30/18 Polyethylene Glycol [Polyox Wsr-301] 1 gm PO DAILY 06/30/18 Pramipexole Di-HCl [Pramipexole Dihydrochloride] 0.5 mg PO BID 06/30/18 Sennosides [Senna] 2 tab PO HS 06/30/18 clonazePAM [Klonopin -] 0.75 mg PO HS 06/30/18 Anemia: No Asthma: No Cancer: No Cardiac Disorders: No CVA: No COPD: No CHF: No Dementia: No Diabetes: No GI Disorders: Yes (reflux) Disorders: No HTN: No Hypercholesterolemia: No Liver Disease: No Seizures: Yes (years ago) Thyroid Disease: No Other medical history: MS - Surgical History Abdominal Surgery: Yes (lap. band placed and removed) Appendectomy: No Cardiac Surgery: No Cholecystectomy: No Lung Surgery: No Neurologic Surgery: No - Immunization History Td Vaccination: Yes Immunization Up to Date: (UNKNOWN) - Suicide/Smoking/Psychosocial Hx Smoking Status: Yes Smoking History: Unknown if ever smoked Have you smoked in the past 12 months: Yes Number of Cigarettes Smoked Daily: 20 'Breaking Loose' booklet given: 05/20/15 Hx Alcohol Use: No Drug/Substance Use Hx: No Substance Use Type: None Hx Substance Use Treatment: No Review of Systems - Review of Systems Comments:: 06/30/18 20:21 GENERAL/CONSTITUTIONAL: No fever or chills. No weakness. HEAD, EYES, EARS, NOSE AND THROAT: No change in vision. No ear pain or discharge. No sore throat. CARDIOVASCULAR: No chest pain or shortness of breath RESPIRATORY: No cough, wheezing, or hemoptysis. GASTROINTESTINAL: No nausea, vomiting, diarrhea or constipation. GENITOURINARY: No dysuria, frequency, or change in urination. MUSCULOSKELETAL: +Back pain as described. Patient denies current knee pain. No joint or muscle swelling or pain. SKIN: No rash NEUROLOGIC: No headache, vertigo, loss of consciousness, or change in strength/ sensation. ENDOCRINE: No increased thirst. No abnormal weight change HEMATOLOGIC/LYMPHATIC: No anemia, easy bleeding, or history of blood clots. ALLERGIC/IMMUNOLOGIC: No hives or skin allergy. *Physical Exam - Vital Signs Last Vital Signs Temp Pulse Resp BP Pulse Ox 98 F 85 20 96/62 100 06/30/18 18:25 06/30/18 18:25 06/30/18 18:25 06/30/18 18:25 06/30/18 18:25 - Physical Exam Comments: 06/30/18 20:22 GENERAL: Awake, alert, and fully oriented, in no acute distress HEAD: No signs of trauma, normocephalic, atraumatic EYES: PERRLA, EOMI, sclera anicteric, conjunctiva clear ENT: Auricles normal inspection, hearing grossly normal, nares patent, oropharynx clear without exudates. Moist mucosa NECK: Normal ROM, supple, no lymphadenopathy, JVD, or masses LUNGS: No distress, speaks full sentences, clear to auscultation bilaterally HEART: Regular rate and rhythm, normal S1 and S2, no murmurs, rubs or gallops, peripheral pulses normal and equal bilaterally. ABDOMEN: Soft, nontender, normoactive bowel sounds. No guarding, no rebound. No masses EXTREMITIES: +Some R>L weakness upper and lower extremities patient reports is normal of her MS. Pain with palpation of R shoulder. Normal inspection, Normal range of motion, no edema. No clubbing or cyanosis. NEUROLOGICAL: Cranial nerves II through XII grossly intact. Normal speech, normal gait, no focal sensorimotor deficits SKIN: Warm, Dry, normal turgor, no rashes or lesions noted. Moderate Sedation - Procedure Monitoring Vital Signs: Procedure Monitoring Vital Signs Temperature 98 F 06/30/18 18:25 Pulse Rate 85 06/30/18 18:25 Respiratory Rate 20 06/30/18 18:25 Blood Pressure 96/62 06/30/18 18:25 O2 Sat by Pulse Oximetry (%) 100 06/30/18 18:25 ED Treatment Course - LABORATORY CBC & Chemistry Diagram: 06/30/18 22:20 06/30/18 22:20 Medical Decision Making - Medical Decision Making 06/30/18 21:27 Ms. Marie is a 43 yo female w/ pmh as described who presents for evaluation s/ p fall. Patient currently at baseline complaining of pain to shoulder only. Will evaluate for exacerbating factors to fall and sequelae s/p fall w/ CBC/CMP , and knee/shoulder imaging. 06/30/18 23:42 Labs grossly wnl as below. Imaging negative. No concern for acute process at this time. Discharging to home for further outpatient follow-up. *DC/Admit/Observation/Transfer Diagnosis at time of Disposition: Fall Qualifiers: Encounter type: initial encounter Qualified Code(s): W19.XXXA - Unspecified fall, initial encounter - Discharge Dispostion Disposition: HOME - Referrals Referrals: Arabella Garcia MD [Primary Care Provider] - - Patient Instructions Printed Discharge Instructions: DI for Shoulder Pain Additional Instructions: You were evaluated today in the ER after your fall. We performed laboratory evaluation as well as imaging with no concerning findings. Please follow-up with primary care provider in 1-2 days for further evaluation. Return to ER if any increased pain not controllable with over the counter motrin or tylenol per package instructions, fevers, chills, or other concerning symptoms. - Post Discharge Activity
[2018-06-30] MEDS ORDERED: FOLIC ACID INJECTION - 1 MG, THIAMINE HCL 100 MG, MULTIVIT INJECTION ADULT 10 ML in SOD... IVPB ONE (21:08)
--- NOTE | 2018-06-30 21:16 | PDOC ---
Attending Attestation - HPI HPI: 06/30/18 21:29 The patient is a 43 year old female with a PMH of seizures on keppra and MS who presents to the ER sent in from [facility] after a fall at 2PM today. Patient states she was having a bowel movement, when she stood up, felt weak in the legs and subsequently fell. Patient reports injuring her right knee, but denies any head trauma or loss of consciousness. Patient had difficulty ambulating after the fall. Patient also began experiencing back pain between the shoulder blades later today, at approximately 5PM and describes the pain as gradual onset and 10/10 in severity. Patient denies any back trauma. Patient states she has not been eating at home. The patient denies chest pain, shortness of breath, headache and dizziness. Denies fever, chills, nausea, vomit, diarrhea and constipation. Denies dysuria, frequency, urgency and hematuria. Allergies: NKA Past surgical history: Lap band, now removed. Social history: No reported alcohol or drug use. Current everyday smoker. PCP: Dr. Koch - Physicial Exam PE: 06/30/18 21:29 ADULT EXAM GENERAL: Awake, alert, and fully oriented, in no acute distress HEAD: (+) Temporalis muscle wasting EYES: PERRLA, EOMI, sclera anicteric, conjunctiva clear. (+) Sunken eyes ENT: Auricles normal inspection, hearing grossly normal, nares patent, oropharynx clear without exudates. Moist mucosa NECK: Normal ROM, supple, no lymphadenopathy, JVD, or masses LUNGS: Breath sounds equal, clear to auscultation bilaterally. No wheezes, and no crackles HEART: Regular rate and rhythm, normal S1 and S2, no murmurs, rubs or gallops ABDOMEN: Soft, nontender, normoactive bowel sounds. No guarding, no rebound. No masses EXTREMITIES: (+) 5/5 arm strength. (+) 4-/5 right leg strength. (+) 4/5 left leg strength.(+) Right clavicle and right shoulder pain. (+) Pain with movement of the right shoulder NEUROLOGICAL: Cranial nerves II through XII grossly intact. Normal speech, normal gait SKIN: Warm, Dry, normal turgor, no rashes or lesions noted. <Diann Cervantes - Last Filed: 06/30/18 21:29> - Resident Resident Name: Gio Naylor - ED Attending Attestation I have performed the following: I have examined & evaluated the patient, The case was reviewed & discussed with the resident, I agree w/resident's findings & plan - Medical Decision Making 07/01/18 01:36 Pt's exam is normal; she has shoulder pain; chronic leg weakness; labs and imaging normal. Pt feeling better and she will be discharged home. <Tiffanie Arredondo - Last Filed: 07/01/18 01:38>
[2018-06-30 22:37] LABS: BASO % 1.1 % (0-2.0); EOS % 2.9 % (0-4.5); HEMOGLOBIN 11.4 GM/dL (10.7-15.3); LYMPH % 34.4 % (8-40); MCH 32.9 pg (25.7-33.7); MCHC 34.5 g/dl (32.0-36.0); MEAN CELL VOLUME 95.5 fl (80-96); MONO % 11.8 % (3.8-10.2); NEUT % 49.8 % (42.8-82.8); PLATELET COUNT 285 K/MM3 (134-434); RBC 3.46 M/mm3 (3.60-5.2); WHITE BLOOD COUNT 9.9 K/mm3 (4.0-10.0)
[2018-06-30 23:14] LABS: ALBUMIN 3.1 g/dl (3.4-5.0); ALK PHOS 65 U/L (45-117); ANION GAP 7 MMOL/L (8-16); BILIRUBIN,TOTAL 0.1 mg/dL (0.2-1); BLOOD UREA NITROGEN 12 mg/dL (7-18); CALCIUM 8.8 mg/dL (8.5-10.1); CHLORIDE 105 mmol/L (98-107); CO2 28 mmol/L (21-32); CREATININE 0.6 mg/dL (0.55-1.3); GLUCOSE,RANDOM 99 mg/dL (74-106); POTASSIUM 3.7 mmol/L (3.5-5.1); SGOT/AST 18 U/L (15-37); SGPT/ALT 27 U/L (13-61); SODIUM 140 mmol/L (136-145); TOT PROT 6.2 g/dl (6.4-8.2)
[2018-07-01] MEDS ORDERED: ACETAMINOPHEN 500 MG TABLET (FP) PO ONE (00:09)
[2018-07-01] MEDS ORDERED: ACETAMINOPHEN 325 MG TABLET (FP) ONE (00:10)
--- NOTE | 2018-07-01 13:14 | EKG ---
Test Reason : Blood Pressure : / mmHG Vent. Rate : 074 BPM Atrial Rate : 074 BPM P-R Int : 152 ms QRS Dur : 088 ms QT Int : 386 ms P-R-T Axes : 061 066 052 degrees QTc Int : 428 ms SINUS RHYTHM WITH PREMATURE ATRIAL COMPLEXES OTHERWISE NORMAL ECG WHEN COMPARED WITH ECG OF 26-MAY-2018 04:51, PREMATURE ATRIAL COMPLEXES ARE NOW PRESENT Confirmed by MD AYANNA, BONNY ([id number]) on 07/01/2018 1:13:42 PM Referred By: Confirmed By:BONNY URENA MD
== END 2018-07-01 00:25 ==
LOC: JER 18:25
PROC: 3E033GC Introduction of Other Therapeutic Substance into Peripheral Vein, Percutaneous Approach (ICD-10-PCS; principal; 2018-06-30)
DX: S89.81XA Other specified injuries of right lower leg, initial encounter (principal); S49.81XA Other specified injuries of right shoulder and upper arm, initial encounter; W18.11XA Fall from or off toilet without subsequent striking against object, initial encounter; Y93.89 Activity, other specified; Y92.121 Bathroom in nursing home as the place of occurrence of the external cause; Y99.8 Other external cause status; Z86.69 Personal history of other diseases of the nervous system and sense organs
CPT/HCPCS: 36415; 73030-TC-RT-FY; 73560-TC-RT-FY; 80053; 84703; 85025; 93005; 93010; 96365; 96366; 99282-25; J7030

== ENCOUNTER 2024-03-05 21:31 | Emergency (ER) | payer OTHER ==
[2024-03-05 21:47] VITALS: BP 100/56; PULSE 60; RESP 18; TEMP 97.8; BMI 34.2
== END 2024-03-06 05:23 | disposition home or self-care (01) ==
LOC: JER 21:31
PROC: 0DH63UZ Insertion of Feeding Device into Stomach, Percutaneous Approach (ICD-10-PCS; principal; 2024-03-06)
DX: K94.23 Gastrostomy malfunction (principal)
CPT/HCPCS: 49450; 74190-TC-FY; 99283-25

== ENCOUNTER 2024-03-20 00:29 | Emergency (ER) | payer OTHER ==
[2024-03-20 00:55] VITALS: BP 101/61; PULSE 73; RESP 17; TEMP 97.7; BMI 34.2
== END 2024-03-20 04:08 ==
LOC: JER 00:29
DX: Z93.1 Gastrostomy status (principal)
CPT/HCPCS: 74018-TC-FY; 99283-25

== ENCOUNTER 2024-03-20 14:39 | Observation (INO) | payer OTHER ==
[2024-03-20 16:20] LABS: EOS % 2.5 % (0-4.5); HEMOGLOBIN 12.7 GM/dL (10.7-15.3); LYMPH % 23.7 % (8-40); MCH 29.4 pg (25.7-33.7); MCHC 32.5 g/dl (32.0-36.0); MEAN CELL VOLUME 90.4 fl (80-96); MONO % 9.7 % (3.8-10.2); NEUT % 63.1 % (42.8-82.8); PLATELET COUNT 328 10^3/uL (134-434); RBC 4.31 M/mm3 (3.60-5.2); RDW 14.8 % (11.6-15.6); WHITE BLOOD COUNT 12.9 K/mm3 (4.0-10.0)
[2024-03-20 16:45] LABS: INR 1.04 (0.83-1.09); PROTHROMBIN TIME (PATIENT) 11.7 SEC (9.7-13.0)
[2024-03-20 16:48] LABS: ACTIVATED PTT 34.5 SECONDS (25.2-36.5)
[2024-03-20 16:57] LABS: POTASSIUM 4.2 mmol/L (3.5-5.1)
[2024-03-20 16:59] LABS: BLOOD UREA NITROGEN 20.4 mg/dL (7-18); CALCIUM 9.2 mg/dL (8.5-10.1)
[2024-03-20 17:00] LABS: ALBUMIN 3.3 g/dl (3.4-5.0)
[2024-03-20 17:02] LABS: CREATININE 0.7 mg/dL (0.55-1.3)
[2024-03-20 17:04] LABS: BILIRUBIN,TOTAL 0.4 mg/dL (0.2-1); TOT PROT 7.1 g/dl (6.4-8.2)
[2024-03-20] MEDS: DEXTROSE 5%-0.45% SALINE 1,000 ML IV SCH (23:04)
[2024-03-20] MEDS: levETIRAcetam 500 MG/5 ML INJECTION VIAL IVPB SCH (23:05)
[2024-03-21 09:34] LABS: BASO % 0.9 % (0-2.0); EOS % 3.8 % (0-4.5); HEMATOCRIT 41.1 % (32.4-45.2); HEMOGLOBIN 13.6 GM/dL (10.7-15.3); LYMPH % 30.1 % (8-40); MCH 30.1 pg (25.7-33.7); MCHC 33.2 g/dl (32.0-36.0); MEAN CELL VOLUME 90.5 fl (80-96); MEAN PLT VOLUME 8.5 fl (7.5-11.1); MONO % 8.5 % (3.8-10.2); NEUT % 56.7 % (42.8-82.8); PLATELET COUNT 333 10^3/uL (134-434); RBC 4.54 M/mm3 (3.60-5.2); RDW 14.9 % (11.6-15.6)
[2024-03-21 09:44] LABS: CALCIUM 9.3 mg/dL (8.5-10.1)
[2024-03-21 09:45] LABS: BLOOD UREA NITROGEN 25.6 mg/dL (7-18)
[2024-03-21 09:48] LABS: CREATININE 0.7 mg/dL (0.55-1.3)
[2024-03-21 16:09] VITALS: BMI 33.5
[2024-03-21] MEDS: ACETAMINOPHEN 650 MG/20.3 ML ORAL SOLUTION (CUPS) PEG PRN (16:10)
[2024-03-21] MEDS: busPIRone HCL 10 MG TABLET (FP) PO SCH (16:12)
[2024-03-21] MEDS: traZODone HCL 50 MG TABLET (FP) PEG SCH (22:23)
[2024-03-21] MEDS: levETIRAcetam 500 MG/5 ML ORAL SOLUTION (UNIT-DOSE CUPS) PEG SCH (22:23)
[2024-03-21] MEDS: ATORVASTATIN CA 40 MG TABLET (FP) GT SCH (22:24)
[2024-03-22 07:46] VITALS: PULSE 78; TEMP 97.5
[2024-03-22] MEDS ORDERED: POLYETHYLENE GLYCOL 1 GM PEG SCH (10:00)
[2024-03-22] MEDS: SERTRALINE HCL 50 MG TABLET (FP) PEG SCH (10:24)
[2024-03-22 10:33] VITALS: BP 106/65; RESP 17
== END 2024-03-22 15:04 ==
LOC: JER 14:39 → JERBED 18:02 → J8W 19:46
PROVIDERS: ADMIT Internal Medicine; ATTEND Internal Medicine
PROC: 0DH64UZ Insertion of Feeding Device into Stomach, Percutaneous Endoscopic Approach (ICD-10-PCS; principal; 2024-03-20)
PROC: 3E033GC Introduction of Other Therapeutic Substance into Peripheral Vein, Percutaneous Approach (ICD-10-PCS; 2024-03-20)
DX: K94.23 Gastrostomy malfunction (principal); G35 Multiple sclerosis; R56.9 Unspecified convulsions; F41.9 Anxiety disorder, unspecified; K21.9 Gastro-esophageal reflux disease without esophagitis; G89.29 Other chronic pain; M54.9 Dorsalgia, unspecified; Z87.891 Personal history of nicotine dependence; Z88.8 Allergy status to other drugs, medicaments and biological substances
CPT/HCPCS: 36415; 49440; 80048; 80053; 80177; 82962; 85025; 85610; 85730; 86850; 86900; 86901; 87635; 93005; 93010; 99285-25; G0378